=== PATIENT | male | born 1940 | race Caucasian/White ===

== ENCOUNTER 2016-12-13 08:49 | Inpatient (IN) | payer OTHER ==
[~2016-12-13] VITALS: Ht 177.8 cm; Wt 97.6 kg
--- NOTE | ~2016-12-13 | HC ---
[facility] [place] [address] CONSULTATION Name: BRADNUNU Andra Room #: 445-P [facility] IN ..#: [id number] Admission: 12/13/16 Attend Phys: Rancho Lan MD Discharge: Date of : 42 Report #: [id number] THIS REPORT FOR: //name// CC: Jorge Lan DATE OF SERVICE: 12/22/2016 HISTORY OF PRESENT ILLNESS: The patient is a 76-year-old white male who was over at [facility] after having right ankle surgery approximately 1 week prior to admission. He was limited to nonweightbearing right lower extremity. He had the onset of worsening shortness of breath and was admitted to [facility] and noted to have acute hypoxic respiratory failure. He was noted to have pneumonia, elevated troponin. Respiratory failure was thought likely be secondary to aspiration pneumonia. He also has had an acute encephalopathy with neuropathy involved. CT of the head was negative. Pulmonary medicine assisted regarding his acute hypoxic respiratory failure and he was treated for a while in the intensive care unit. He has been transferred out of the ICU. Encephalopathy appears to be gradually improving, although his mental status is still not back to premorbid status per my review of notes. He was noted to also sustain a non-ST elevation [place] with coronary artery disease and Cardiology has been involved. He is to continue current medical management. His hyponatremia resolved. He does have severe protein-calorie malnutrition. We are seeing him now in rehabilitation medicine consultation. PAST MEDICAL HISTORY: Includes non-ST elevation AZ. He has history of diabetes mellitus type 2, coronary artery disease, hypertension, elevated cholesterol, COPD, CHF. MEDICATIONS: Please see the full medication listing. ALLERGIES: No known drug allergies. FAMILY HISTORY: Noncontributory. SOCIAL HISTORY: He does have involved family, but prior to admission was at the [facility] for a intermediate facility stay. REVIEW OF SYSTEMS: Did not offer any current complaints of chest pain, shortness of breath, abdominal discomfort. PHYSICAL EXAMINATION: GENERAL: A 76-year-old white male in no obvious distress. VITAL SIGNS: Last recorded temperature 97.7, pulse 74, respirations 22, blood pressure 149/64. [facility] [address] [place] [address] CONSULTATION Name: NUNU SALINAS Room #: 445-P [facility] IN [facility]#: [id number] Admission: 12/13/16 Attend Phys: Rancho Lan MD Discharge: Date of : 42 Report #: [id number] NEUROLOGIC: He is alert, hoarse of voice some, somewhat tangential, will follow basic 1 step commands, but needs repetition. He has eyeglasses in place. EXTREMITIES: Functional range of motion of the upper extremities. Strength is grade 4- to 3+/5. In his lower extremities, right lateral ankle has kirsten in place over the incision site. 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 Strength of the right lower extremity is probably a grade 3+/5. Left lower extremity is probably 3+/5 as well. DTRs are decreased. Functionally, he has been needing max assist x 2 for bed to chair with slow shuffling pivot attempted transfer. ASSESSMENT: A 76-year-old white male with the following problem list: 1. Acute encephalopathy. 2. Acute hypoxic respiratory failure secondary to likely aspiration pneumonia. 3. Non-ST elevation myocardial infarction with coronary artery disease. 4. Recent right ankle surgery limited to nonweightbearing. 5. Hyponatremia, resolved. 6. Diabetes mellitus type 2. 7. Protein calorie malnutrition. PLAN: The nonweightbearing status with his right ankle surgery is the significant limiting factor and he is currently at a lower functional level. Case management notes reviewed and would agree with a intermediate facility stay with returning back to [facility] as he further medically stabilizes. Thank you for asking us to assist in this patient's care. <ELECTRONICALLY SIGNED> By: Michele Reyna MD 12/29/16 1523 [id number] 0252 Michele Reyna MD /nt
--- NOTE | ~2016-12-13 | O ---
[facility] [place] [address] OPERATIVE REPORT Name: NUNU SALINAS Room #: 245-P [facility]..#: [id number] Admission: 12/13/16 Attend Phys: Preston Rodríguez MD Discharge: 01/19/17 Date of : 42 Report #: [id number] THIS REPORT FOR: //name// CC: Jorge Marcus Rodríguez DATE OF SERVICE: 01/12/2017 PREOPERATIVE DIAGNOSES: Respiratory failure, aspiration pneumonia and inability to wean from ventilator for extubation. POSTOPERATIVE DIAGNOSES: Respiratory failure, aspiration pneumonia and inability to wean from ventilator for extubation. PROCEDURE: Tracheotomy planned. SURGEON: Asim Morton M.D. DESTINATION SIGN REPAIRER: Madelaine Pantoja NP ANESTHESIA: General endotracheal anesthesia and local anesthetic. ESTIMATED BLOOD LOSS: 10 mL. SPECIMENS TO PATHOLOGY: None. FINDINGS: Calcified tracheal cartilages, size 8.0 cuffed Shiley tracheotomy tube placed. Postoperative chest x-ray demonstrated tracheotomy tube well positioned. The patient was able to be ventilated well with good end-tidal CO2 return. INDICATION FOR PROCEDURE: The patient is a 76-year-old male patient who was recently admitted with multiple medical issues including coronary artery disease, COPD, previous coronary artery bypass graft with new hypoxia and pneumonia as well as elevated troponin. He was noted to have suspected aspiration pneumonia and gastroenterology evaluation showed that the patient likely had dysphagia and inability to tolerate oral feedings. He also was noted to be diagnosed newly with Clostridium difficile colitis. The patient has been on oral vancomycin for this. Gastroenterology was consulted for placement of gastrojejunal feeding tube and general surgery was consulted for tracheotomy tube placement. Detailed discussion of the risks and benefits of tracheotomy placement was held with the patient's at the bedside as the patient remained intubated and sedated. All questions were answered to her satisfaction. Risks included bleeding, pain, infection, dislodgement of the tracheotomy tube, damage to surrounding structures, possible subsequent tracheal stenosis, laryngeal injury and other potentially unforeseen issues were discussed. All questions were answered to her satisfaction. Written [address] [address] OPERATIVE REPORT Name: NUNU SALINAS Room #: 245-P [facility] IN ..#: [id number] Admission: 12/13/16 Attend Phys: Preston Rodríguez MD Discharge: 01/19/17 Date of : 42 Report #: [id number] informed consent was obtained. DESCRIPTION OF PROCEDURE: The patient was brought to the operating room and placed in a supine position. He had already been in the operating room for gastroenterology procedure, namely placement of a gastrojejunal feeding tube. Shoulder roll was placed and neck was extended to expose the neck landmarks. Palpation of the landmarks was performed and these were marked with a marking pen. Neck was sterilely prepped and draped in standard fashion from chin to sternal notch. Local anesthetic was infiltrated at approximately the second tracheal ring. Transverse incision was made with a knife and carried through the skin and subcutaneous tissue down to the platysma. This was carefully opened using electrocautery. Dissection was carried down to the level of the strap muscles, which were divided in the midline and retracted laterally. Dissection was carried further to the pretracheal fascia, which was scored and was cleared using a Peanut laterally. Second tracheal cartilage was then carefully exposed and landmarks were again palpated. The patient was preoxygenated to 100% oxygen. The 8.0 Shiley ____ tube was checked and the cuff was noted to be well functional. This was lubricated and kept nearby. Incision was made in the airway after anesthesia team had been notified. The endotracheal tube was withdrawn to just above the tracheotomy. The cartilage was then noted to be significantly calcified and even with an 11 blade, this was not able to be fully opened into a Radha flap. Curved heavy Leon scissors were utilized to create a Radha flap that would accommodate the tracheotomy tube. The tracheotomy tube was then passed into the trachea and inner cannula was removed. The patient was ventilated through this tracheotomy tube after inner cannula had been placed and upon attempting to inflate the cuff, this was noted to have ruptured. Therefore, the tracheotomy tube was exchanged for a new tracheotomy tube. The initial tube was noted to have a tear in the balloon, consistent with the jagged edge of the calcified cartilage. The second tracheotomy tube was attempted to be inflated and this also had torn a hole in the cuff. A third 8.0 Shiley tracheotomy tube was placed and a similar issue was noted, although the patient was noted to ventilate well with only a partial inflation of that cuff and even with the cuff taken down completely, the size of the tube was adequate such that the patient was receiving tidal volumes upwards of 800 mL and maintaining a saturation well with excellent end-tidal CO2 return. Therefore, this 8.0 Shiley cuffed tracheotomy tube was left in position and this was secured to the anterior neck skin with four 2-0 nylon interrupted sutures. Surgicel was placed into the tract to aid with hemostasis. It should also be noted that upon dissection down to the level of the pretracheal fascia that the thyroid isthmus had been carefully divided in the midline using electrocautery on slow fulguration. After tracheotomy tube had been fully secured and Surgicel packed into the wound, a Velcro strap was placed to further secure the tracheotomy tube. The patient was left ventilated through the Shiley tracheotomy tube and he was then transported to the ICU. Portable chest x-ray was obtained and this demonstrated tip noted above the elodia with no other obvious abnormalities, no obvious pneumothorax was noted. [facility] [address] [place] [address] OPERATIVE REPORT Name: NUNU SALINAS Room #: 245-P [facility] IN M.R.#: [id number] Admission: 12/13/16 Attend Phys: Preston Rodríguez MD Discharge: 01/19/17 Date of : 42 Report #: [id number] At this point, the case was ended. All instrumentation had been extracted and accounted for. All counts were correct per nurse report. <ELECTRONICALLY SIGNED> By: Asim Morton MD 01/21/17 0839 1633 1843 Asim Morton MD /nt
--- NOTE | ~2016-12-13 | EKG ---
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
--- NOTE | ~2016-12-13 | 2DMMODE ---
[facility] [place] [address] 2 D/M-MODE ECHOCARDIOGRAM Name: BRADNUNU E Room #: 241-P [facility] IN ..#: [id number] Admission: 12/13/16 Attend Phys: Rancho Lan MD Discharge: Date of : 42 Date of Service: 12/24/16 1353 Report #: [id number] THIS REPORT FOR: //name// APPROVED REPORT Study performed: 12/24/2016 07:57:45 EXAM: Limited 2D, Doppler, and color-flow Echocardiogram Patient Location: Bedside Room #: 241 Blood Pressure: 141/70 mmHg HR: 86 bpm Other Information Study Quality: Fair Technically limited study due to body habitus, limited mobility, poor patient compliance. Patient in ICU on vent.. Indications Limited follow up echo for Acute repiratory failure, CHF, LV function, recent NSTEMI. Hx: CABG, DM, HTN, HLP, CHF. (Complete echo done 12/14/2016) Echo Enhancing Agent Indication: Endocardial border delineation Agent/Amount Used: Definity cc Tricuspid Valve TR Peak Alton.: 2.78 m/s RAP Estimate: 10.00 mmHg TR Peak Gr.: 30.92 mmHg RVSP: 41.00 mmHg Left Ventricle Left ventricular systolic function is normal. LVEF is 50-55%. Right Ventricle The right ventricle is normal size. The right ventricular systolic function is normal. Atria The left atrium size is normal. The right atrium size is normal. Aortic Valve [facility] [address] [place] [address] 2 D/M-MODE ECHOCARDIOGRAM Name: NUNU SALINAS Andra Room #: 241-P [facility] IN ..#: [id number] Admission: 12/13/16 Attend Phys: Rancho Lan MD Discharge: Date of : 42 Date of Service: 12/24/16 1353 Report #: [id number] Aortic valve leaflets are mildly thickened. No aortic regurgitation is present. Mitral Valve The mitral valve is normal in structure. Mild mitral annular calcification. There is no mitral valve regurgitation noted. Tricuspid Valve The tricuspid valve is normal in structure. There is mild tricuspid regurgitation. The right atrial pressure is estimated at 10 mmHg. There is moderate pulmonary hypertension. Estimated PAP is 41mmHg. Great Vessels IVC is dilated and collapses >50% with inspiration. <Conclusion> Left ventricular systolic function is normal. LVEF is 50-55%. Aortic valve leaflets are mildly thickened. The mitral valve is normal in structure. Mild mitral annular calcification. There is no mitral valve regurgitation noted. The tricuspid valve is normal in structure. There is mild tricuspid regurgitation. The right atrial pressure is estimated at 10 mmHg. There is moderate pulmonary hypertension. Estimated PAP is 41mmHg. <ELECTRONICALLY SIGNED> By: Alejandro Diamond MD 12/24/16 1353 1353 1353 Alejandro Diamond MD /INF
--- NOTE | ~2016-12-13 | HC ---
[facility] [place] [address] CONSULTATION Name: NUNU SALINAS Room #: 245-P [facility] IN ..#: [id number] Admission: 12/13/16 Attend Phys: Rancho Lan MD Discharge: Date of : 42 Report #: [id number] THIS REPORT FOR: //name// CC: Jorge Lan REASON FOR CONSULTATION: I was asked to evaluate concerning pneumonia and leukocytosis. HISTORY OF PRESENT ILLNESS: The patient was a 76-[facility]-old [facility] with history of hypertension, diabetes, coronary artery disease who presented with ongoing cough, sputum production, hypoxia and bilateral pulmonary infiltrates. His white count was initially 18,000. He was placed on IV antibiotic therapy including Zosyn. He has had intermittent temperature up to 100.2 degrees. Oxygen requirements have been 2 liters, now down to 1 liter. He had a video swallow, which was negative for aspiration. He has been relatively lethargic though when questioned, he was oriented. No stroke or seizure has been identified. White count today increased to 16,000 and x-ray shows worsening pulmonary infiltrates. ALLERGIES: CODEINE, DOXYCYCLINE, SULFA. MEDICATIONS: As noted on his MAR including Zosyn. He is on no corticosteroids. PAST MEDICAL HISTORY: Diabetes, coronary artery disease, hypertension, hyperlipidemia, COPD, congestive heart failure. SOCIAL HISTORY: Nonsmoker, no significant alcohol intake. FAMILY HISTORY: Noncontributory. REVIEW OF SYSTEMS: Recently had a right ankle fracture repair, details of this are not currently available. He had a troponin bump up to 2.89. [place] this was possibly related to his hypoxia, he had a non-STEMI. Echocardiogram showed normal LV function. Cardiovascular medicine evaluated the patient and recommended medical therapy. The patient was without ongoing chest pain. He has an indwelling Guzman catheter and is incontinent of soft stool. PHYSICAL EXAMINATION: VITAL SIGNS: Afebrile, hemodynamically stable, is on room air. He was slow to answer, but was oriented to person, place, day. GENERAL: He had ptosis on the left, generally weak and was unable to rollover in bed on his own. EXTREMITIES: He had increased muscle tone throughout. NECK: Supple. LUNGS: Coarse posteriorly bilaterally. HEART: Regular, without murmur. [address] [address] CONSULTATION Name: NUNU SALINAS Room #: 245-P [facility] IN M.R.#: [id number] Admission: 12/13/16 Attend Phys: Rancho Lan MD Discharge: Date of : 42 Report #: [id number] ABDOMEN: Soft, nontender, no hepatosplenomegaly or mass. External genitalia unremarkable with indwelling Guzman catheter. Right lateral ankle incision was well approximated. 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 No evidence of cellulitis or decubiti. LABORATORY STUDIES: Sodium 129, potassium ____, bicarbonate 24, creatinine 1.6. Liver function tests: AST 29, ALT 29, alkaline phosphatase 135, bilirubin 1.5. Hemoglobin 7.4, white count 16.1, platelet count is 488,000. Blood cultures on 12/13/2016 and 12/16/2016 are negative to [address] scan of the chest shows bilateral infiltrates with nodular component. Video swallow was negative. CT of the head negative. IMPRESSION: A 76-year-old with underlying coronary artery disease, diabetes and recent right ankle fracture with bilateral pulmonary infiltrates and leukocytosis. Unclear at this point in time if this is true aspiration in etiology or component of heart failure despite a normal echocardiogram. I would recommend broadening his antibiotic coverage to include vancomycin. Obtain sputum culture if possible, MRSA screen, strep and legionella antigen screen, BNP. We will need to repeat chest x-ray to ensure improvement. <ELECTRONICALLY SIGNED> By: Luis Manuel Causey MD 12/21/16 0948 1051 1223 Luis Manuel Causey MD /nt
--- NOTE | ~2016-12-13 | HC ---
[facility] [place] [address] CONSULTATION Name: NUNU SALINAS Room #: 303-P [facility] IN ..#: [id number] Admission: 12/13/16 Attend Phys: Rancho Lan MD Discharge: Date of : 42 Report #: [id number] THIS REPORT FOR: //name// CC: Sneha Peñaloza MD REASON FOR CONSULTATION: Anemia. HISTORY OF PRESENT ILLNESS: The patient is a 76-year-old gentleman who, if I understand, had recently been at a nursing facility and he had been there after being taken there after having an open reduction and internal fixation of a lesion of his leg, I think, maybe back in early November, but I am not completely clear. We do have records of back in December 02 at [facility], found he had hemoglobin of 11.4 at an outside nursing facility. On 12/10/2016, he had hemoglobin of 7.9. On admission here, his hemoglobin was 9.1; then the next day, 8.4, which may allow for some hydration issues. Since that time, he sort of slowly drifted down, especially over the last 5 days from about 8.1 down to yesterday 7.3 and today 7.1. The patient is somewhat of a questionable historian. He denies any blood in his urine or stool that he is aware of. He has had 2 Hemoccults here that have been negative. It sounds like his last EGD and colonoscopy were about 5 years ago. It sounds like he is due in the next month or in the next several weeks if I recall. He has not been on iron recently and it does sound like maybe he might have been iron once in the past, but it is not really clear. It looks like he was also on Plavix recently or in the past. We have been consulted because of a question of anemia. We have also noted that at the same time, his MCV is about 94.4. His white count was initially elevated and it is now normalized. He has a fairly nonacute differential, though there have been some metamyelocytes and myelocytes noted. His platelet count, which was initially 497,000 on admission here, was up to 529,000 and is now down to 404,000. His absolute retic count from yesterday is 51%. His immature reticulocyte fraction is 0.65. These, I believe, are suggestive of under production. The rest of his lab is notable for BUN on admission of 25, recently 13; creatinine was 1.3, it is now 0.9. Liver functions have been normal. Total bilirubin has been normal. AST and ALT have been normal. Albumin recently 1.7. LDH was 549. Iron studies on the showed an iron of 22, which is low; TIBC of 87, which is low and percent saturation of 25, which is low normal or in the low range of normal. Protime here is 12.4. Recent APTT of 39.4, which is elevated; on admission, it is 34.1. Fibrinogen level is normal. Ferritin was 854. TSH normal at 0.48. He was C. diff positive recently. Methylmalonic acid level was ordered and is drawn and [facility] [address] [place] [address] CONSULTATION Name: NUNU SALINAS Room #: 303-P ADM IN [place]#: [id number] Admission: 12/13/16 Attend Phys: Rancho Lan MD Discharge: Date of : 42 Report #: [id number]. Vitamin D-125 is 44.6. U/A did not reveal any blood, there is trace. Scans done here include a CTA of the chest earlier, which did not reveal any unusual masses or lymphadenopathy. There was some question of pulmonary infiltrate and questionable, I think, atelectasis. They suggested a followup to make sure that pulmonary nodular density has cleared up. He has also had a CT head that I believe was no acute changes. He has an ultrasound of the lower extremity that did not reveal any clots on the . Same date upper extremity did reveal some swelling in the left arm, with occlusive thrombus involving the cephalic vein from proximal forearm to mid humeral level. REVIEW OF SYSTEMS: The patient at this time denies headache. He does have a slight dry throat, not really sore. He says he has maybe coughing a little bit. Does not feel real short of breath, just very tired. No abdominal pain. Does admit to some diarrhea over the last several days. No nausea. He is not aware of any blood in his urine or stool. He is not aware of coughing up any blood. He is not aware of any skin rash. He does have a sore ankle from the not too recent surgery. PAST MEDICAL HISTORY: Past history is notable for the type 2 diabetes, coronary artery disease with a questionable non-BUCKY KS from about 2 weeks ago. Also, history of coronary artery disease, hypertension, lipid abnormality, COPD and CHF. He had amputation of the right first toe. MEDICATIONS: At this time in the hospital include insulin on a sliding scale; meropenem antibiotics; Lovenox 40 mg daily, begun yesterday; pantoprazole 40 daily. He had pressors in the past. Electrolyte replacement medications; cyanocobalamin 1000 mcg daily; enteric-coated aspirin 81 daily; clopidogrel 75 daily, began on the ; metoprolol 25 q.12h.; atorvastatin 20 at bedtime; ipratropium and albuterol 3 mL q.4h.; Tylenol p.r.n. and Zofran p.r.n. PHYSICAL EXAMINATION: VITAL SIGNS: The patient is 5 feet 10, which is 177.8 cm. Weight is around 226 pounds, which is 102.5 kilograms. HEENT: Face appears mostly symmetric, though in the past I know there had been a comment about facial droop, though it was thought to be old. His speech is somewhat garbled, but I think that maybe from dry throat and mucus. He appears to understand questions and had been communicating well. LYMPHATICS: No enlarged lymph nodes in the supraclavicular, cervical, axillary or inguinal region. ABDOMEN: Obese, not really tender. No abnormal masses noted. EXTREMITIES: Without clubbing or cyanosis. Note that does have about 1-2 mm edema at the ankles. Has changes from the right first toe amputation. ASSESSMENT AND PLAN: 1. Anemia. The patient appears to have hypoproliferative anemia. This could be related to chronic illness or could be related [place] [id number] CONSULTATION Name: NUNU SALINAS Room #: 303-P [facility] IN [place].R.#: [id number] Admission: 12/13/16 Attend Phys: Rancho Lan MD Discharge: Date of : 42 Report #: [id number] panel is not really clear about whether he is iron deficient. His ferritin is likely elevated from acute inflammatory status, which suggests to give the patient 200 mg of iron dextran to make sure he has adequate iron to help with red cell production. We will transfuse if he drops below 7. Note that he is also due for colonoscopy and EGD per 5-year in the near future. He was Hemoccult negative. I think we could cautiously proceed with Plavix as he has been on and also the addition of Lovenox prophylaxis. We will follow with you. Note that methylmalonic acid level is pending. Could check an erythropoietin level, but we would not be able to as there is no indication to fix it. Note the patient had metamyelocytes and myelocytes. If these persist, could consider bone marrow biopsy, but I doubt bone marrow dysfunction at this point with a fairly good white cell production and normal platelet count and MCV in normal range. 2. Catheter-associated clot in the left arm, catheter now gone. Catheter on the right side. Agree with the use of Lovenox and conservative measures. 3. Coronary artery disease. Agree with Plavix, aspirin and other meds. 4. Lipids. Continue statins. 5. Ulcer prophylaxis. Continue pantoprazole. 6. Chronic obstructive pulmonary disease. Continues inhalers. 7. Clostridium difficile. We will defer antibiotic management to others. This is a recent finding. 8. Question of pneumonia. He is currently on meropenem. 9. Weakness and deconditioning. PT, OT as tolerated. We will follow with you. <ELECTRONICALLY SIGNED> By: Freddie Gagnon MD 12/23/16 0929 0809 0224 Freddie Gagnon MD /nt
--- NOTE | ~2016-12-13 | O ---
[facility] [place] [address] OPERATIVE REPORT Name: NUNU SALINAS Room #: 245-P [facility]..#: [id number] Admission: 12/13/16 Attend Phys: Preston Rodríguez MD Discharge: 01/19/17 Date of : 42 Report #: [id number] THIS REPORT FOR: //name// CC: Jorge Marcus Rodríguez DATE OF SERVICE: 01/14/2017 PREOPERATIVE DIAGNOSES: Dysfunctional tracheotomy tube cuff unable to hold pressure. POSTOPERATIVE DIAGNOSES: Functional 8.0 Shiley tracheotomy tube. SURGEON: Asim Morton MD. [employer]: Tracheotomy revision. ANESTHESIA TYPE: General. ESTIMATED BLOOD LOSS: 1 mL. SPECIMENS TO PATHOLOGY: None. COMPLICATIONS: None. FINDINGS: An 8.0 Shiley cuff tracheotomy tube placed. Cuff noted to hold pressure well with Valsalva without air leak. INDICATION FOR PROCEDURE: The patient is a 76-year-old male patient with multiple medical problems including respiratory failure and clostridium difficile colitis who has been recently intubated with inability to wean from the ventilator. He had undergone tracheotomy placement on 01/12/2017. Subsequent to this over the next 48 hours, it was noted that the cuff on his tracheotomy tube was unable to hold seal well, although the patient was able to ventilate well. It was noted that he had secretions that were not being well tolerated and there was concern that ongoing aspiration might be occuring, therefore, general surgery was asked to revise the tracheotomy and replace the tube as this was such a recent tracheotomy placement. The decision was made to perform this in the operating room setting for better vascular control, visualization and with better access to equipments should the need arise. Detailed discussion of the risks and benefits of this procedure was held with family and written informed consent was obtained by the durable power of deputy prosecuting attorney. DESCRIPTION OF PROCEDURE: The patient was brought to the operating room and placed in a supine position. Timeout was taken to verify the patient's identity [address] [address] OPERATIVE REPORT Name: BRADNUNU E Room #: 245-P [facility] IN ..#: [id number] Admission: 12/13/16 Attend Phys: Preston Rodríguez MD Discharge: 01/19/17 Date of : 42 Report #: [id number] and to plan the procedure, the patient was anesthetized and already had the old 8.0 Shiley tracheotomy tube in place. A new 8.0 Shiley cuffed tracheotomy tube was brought into the field and was checked to see that the cuff was well functional. This was lubricated and set to the side. The previously placed Shiley tracheotomy tube was removed and examination of the previously placed direct flap was performed. This was noted to be intact with no obvious active bleeding. Some secretions were suctioned clear. A nasal speculum was utilized to hold back the jagged edges of the calcifed cartilage, which had been noted previously. The 8.0 Shiley cuffed tube was then placed within the tracheal lumen and nasal speculum was extracted, cuff was inflated, [place] was attached. Good entitle CO2 was noted and the cuff was noted to hold pressure well. The patient was brought to Valsalva by anesthesia and even with Valsalva up to a level of 50, no air leak was noted around the tracheotomy tube cuff. This tracheotomy tube was then secured to the anterior neck skin with four 2-0 nylon interrupted sutures and Velcro strap was applied to one fingerbreadth tightness. At this point the case was ended. All Instrumentation have been extracted and accounted for. All accounts were correct per nursing report. The patient was taken back to the intensive care unit in guarded condition. No immediate complications. <ELECTRONICALLY SIGNED> By: Asim Morton MD 01/21/17 0842 0927 1238 Asim Morton MD /nt
--- NOTE | ~2016-12-13 | S ---
[facility] [place] [address] SURGICAL PATH RPT PROCEDURE Name: NUNU SALINAS Room #: 303-P ADM IN M.R.#: [id number] Admission: 12/13/16 Date of : 42 Discharge: Report #: [id number] Path Case #: [id number] PATHOLOGY REPORT COLLECTION DATE: 12/21/2016 RECEIVED DATE: 12/21/2016 SUBMITTING PHYS: Dr. Freddie Gagnon OTHER PHYS: Dr. Rancho Tao SPECIMEN(S) RECEIVED: A.Peripheral smear * * * * * * * * * * * * FINAL DIAGNOSIS: Peripheral blood smear: - Severe normocytic anemia, left shifted granulocytes and mild thrombocytosis. (See comment) COMMENT: Overall the peripheral blood has severe normocytic anemia, left-shifted granulocytes with reactive changes and mild thrombocytosis. The WBC is within the normal reference range. The etiology of the findings is unclear based entirely on slide review. It is likely related to the patient's underlying medical condition. Other causes of normocytic anemia include anemia of chronic disease, treated and/or compensated vitamin and mineral deficiencies, acute blood loss and dilutional. Potential causes of thrombocytosis include iron deficiency, other reactive conditions and less likely primary bone marrow disorders. No blasts or markedly atypical lymphoid cells are seen on scanning. Correlation with clinical history and additional laboratory data is recommended. (CLW:luna; d/t: 12/21/2016) PATHOLOGIST: Inés Herrera M.D. REPORT ELECTRONICALLY SIGNED BY: Inés Herrera M.D. DATE/TIME: 12/21/2016 22:43 * * * * * * * * * * * * MICROSCOPIC DESCRIPTION: CBC DATA (12/21/16): WBC: 8,100 /uL; RBC: 2.28; Hgb: 7.3 g/dL; Hct: 21.2%; MCV: 92.7 fL; MCH: 31.8 pg; MCHC: 34.3 %; RDW: 13.8%; platelets: 452,000 [place] [address] SURGICAL PATH RPT PROCEDURE Name: NUNU SALINAS Room #: 303-P ADM IN [facility].#: [id number] Admission: 12/13/16 Date of : 42 Discharge: Report #: [id number] Path Case #: [id number] /uL. Manual white blood cell differential: segs - 89%, lymphs - 2%, monos - 2%, eos - 5%, baso - 1%, metas - 1%, myelos - 1%. Peripheral blood smear: Cytomorphological examination of the Singletary's-stained peripheral blood smear confirms the provided data. Red blood cells show severe normocytic anemia with no significant anisopoikilocytosis. No schistocytes or microspherocytes are seen. White blood cells are predominantly segmented neutrophils and have mild reactive changes. There is a mild left shift with rare myelocytes and metamyelocytes noted on scanning. No blasts or Andrew rods are seen. Rare lymphocytes are predominantly small, round and mature-appearing with condensed chromatin and scant cytoplasm with admixed large granular lymphocytes and reactive-appearing lymphocytes. On scanning, no markedly atypical lymphoid cells are seen. Monocytes are mature. Platelets are mildly increased in number and mainly normal in morphology with rare larger platelets noted. GROSS PATHOLOGY: A peripheral smear is submitted for review. CLINICAL HISTORY: 76-year-old man with pneumonia. Morphologic review of the peripheral blood smear is requested by the patient's physician. INITIAL CPT CODE(S): A; [place] Professional services performed by [facility] at [facility] [address], [place] [address] Technical services performed by [facility] at [address] [place] [address], [address], [place] [address]. [facility] [address] [place] [address] PHONE: [phone] DIRECTOR: Win Amaral M.D. * * * END OF REPORT * * *
--- NOTE | ~2016-12-13 | HC ---
[facility] [address] CONSULTATION Name: BRADNUNU E Room #: 245-P [facility] IN .R.#: [id number] Admission: 12/13/16 Attend Phys: Rancho Lan MD Discharge: Date of : 42 Report #: [id number] THIS REPORT FOR: //name// CC: Jorge Lan DATE OF SERVICE: 12/19/2016 REASON FOR CONSULTATION: Atelectasis and infiltrates. IMPRESSION: 1. Atelectasis and infiltrates, likely aspiration pneumonia. 2. Acute hypoxemic respiratory failure. 3. Encephalopathy, question etiology. 4. Non-ST elevation myocardial infarction. 5. Diabetes with fluctuating blood sugars. 6. Right ankle fracture. 7. History of rhabdomyolysis. 8. Anemia, microcytic. PLAN: We will work him up for possible sepsis; if procalcitonin or white count is elevated, we will move to ICU and monitor there. We will push pulmonary toilet IS, and IPV and BiPAP. DVT prophylaxis has been done already. Doubt this is fat embolism. He has had problems with medications in the past including Cipro and doxycycline and we were reviewed the meds. HISTORY OF PRESENT ILLNESS: A 76-year-old presented to [facility] after having 3 falls, has had a recent amputation. He has a history of diabetes. He has been having problems with hyperglycemia, had 3 falls before being admitted. He had surgery earlier this month. Discussed with the family, he has had problem with hypoglycemia, even at [facility]. Since he has been here on and off for poor mentation. But usually awakens easier. PAST MEDICAL HISTORY: Per chart and discussed with the family, hypertension, diabetes, coronary artery disease, hyperlipidemia. PAST SURGICAL HISTORY: Include CABG amputation. ALLERGIES: SULFA, CODEINE, DOXYCYCLINE, CIPRO. SOCIAL HISTORY: Negative tobacco. FAMILY HISTORY: Noncontributory. HOME MEDICATIONS: Included hydrochlorothiazide, simvastatin, Actos, metformin, Plavix, Diabeta, Prinivil, aspirin, metoprolol, cyanocobalamin, hydrocodone. [facility] [address] [place] [address] CONSULTATION Name: NUNU SALINAS Room #: 245-P [facility] IN ..#: [id number] Admission: 12/13/16 Attend Phys: Rancho Lan MD Discharge: Date of : 42 Report #: [id number] REVIEW OF SYSTEMS: Unobtainable from the patient as he is very lethargic, arouses somewhat. PHYSICAL EXAMINATION: VITAL SIGNS: Temperature 98.2, pulse 76, respirations 16, BP 131/53. EYES: Negative icterus. NECK: Negative JVD. LUNGS: Coarse bilateral. HEART: Regular. ABDOMEN: Bowel sounds present. EXTREMITIES: Right greater than left leg warmth. LABORATORY DATA: Did not follow. Discussed with the family and nurse. Forty minutes of critical care time spent up to this point. pH 7.5, pCO2 of 30, pO2 of 66. Chest x-ray showed bibasilar infiltrates. Iron 22, TIBC 87. White count 8.5. BUN 18, creatinine 1.2. Magnesium 1.6. <ELECTRONICALLY SIGNED> By: Fransisco Landry MD 12/21/16 0548 1624 2251 Fransisco Landry MD /nt
--- NOTE | ~2016-12-13 | P ---
[facility] [place] [address] PROCEDURE REPORT Name: SHAUNNA SALINASJAZZY Silverman Room #: 245-P [facility] IN M.R.#: [id number] Admission: 12/13/16 Attend Phys: Preston Rdoríguez MD Discharge: Date of : 42 Report #: [id number] THIS REPORT FOR: //name// CC: Jorge Rodríguez DATE OF SERVICE: 01/12/2017 PROCEDURE: Percutaneous endoscopic gastrojejunostomy tube placement. This was performed in OR3. INDICATION: Recurrent aspiration pneumonia. Plan is for post-pyloric feeding tube placement and tracheostomy. DESCRIPTION OF PROCEDURE: The adult endoscope was introduced through the esophagus into the stomach into the second portion of the duodenum and then withdrawn slowly with careful inspection of the mucosa. There was mild gastric erythema in the antrum, but normal esophagus, normal duodenum. The transillumination was then performed with good 1:1 impression and the trocar was then introduced into the stomach. The wire was then passed. A snare was then used to pull the wire out of the mouth. The pull 24-[place] G-tube placement was then pulled through and made taut to the stomach wall. The -tube was then fashioned with a string on the end of it. The adult endoscope was then reintroduced into the mouth, down into the stomach. The string was grasped with an endoscopic hemostatic clip and then pulled down into the duodenum where it was then deployed on the second portion of the duodenal wall. The scope was then withdrawn carefully and at the end of the procedure, the post-pyloric feeding tube was passed the pylorus. The procedure was then terminated. RECOMMENDATIONS: To start tube feeds in 4 hours. Can use for water and crushed medications at this time. <ELECTRONICALLY SIGNED> By: Lake Rosario MD 01/15/17 1103 0901 1824 Lake Rosario MD /nt
--- NOTE | ~2016-12-13 | HC ---
[facility] [place] [address] CONSULTATION Name: NUNU SALINAS Room #: 454-P [facility] IN ..#: [id number] Admission: 12/13/16 Attend Phys: Rancho Lan MD Discharge: Date of : 42 Report #: [id number] THIS REPORT FOR: //name// CC: Jorge Lan DATE OF SERVICE: 12/13/2016 INDICATION: Positive troponin. HISTORY OF PRESENT ILLNESS: This is a 76-year-old gentleman residing at [facility] after experiencing multiple falls. He was noted to have cough with dyspnea over the past few days. His saturation was 84% on room air, and he was brought to [facility] for an evaluation. Chest x-ray was consistent with pneumonia with an elevated white count. We are asked to evaluate the patient for a positive troponin level. He is confused and the history cannot be obtained from the patient. PAST MEDICAL HISTORY: History of CAD, hypertension, diabetes mellitus, COPD, and recently with frequent falls. ALLERGIES: CODEINE, DOXYCYCLINE and SULFA. MEDICATIONS: Include glyburide 5 mg twice a day, Plavix 75 daily, metoprolol, Zestril 20 mg daily, hydrochlorothiazide once a day, Actose 30 mg daily, simvastatin, Glucophage, aspirin once a day and midodrine 5 mg 3 times a day. SOCIAL HISTORY: Negative for tobacco use. FAMILY HISTORY: Unknown. REVIEW OF SYSTEMS: Unobtainable. PHYSICAL EXAMINATION: VITAL SIGNS: Blood pressure is 110/90 and heart rate is 100 beats per minute. GENERAL APPEARANCE: Elderly-appearing male, in no acute respiratory distress. HEAD AND EYES: Normocephalic. Sclerae are anicteric. EARS, NOSE AND THROAT: Oral mucosa moist. NECK: Supple. LUNGS: Diminished breath sounds at the bases. CARDIAC: Distant heart sounds, S1, S2 positive. ABDOMEN: Soft and nontender. EXTREMITIES: No major joint deformities. Trace lower extremity edema. LABORATORY VALUES: ECG reveals sinus rhythm, right bundle branch block and left anterior hemiblock. Peak troponin level is 2.89, white count is 18.3, [facility] [address] [place] [address] CONSULTATION Name: NUNU SALINAS Andra Room #: 454-P [facility] IN [facility].#: [id number] Admission: 12/13/16 Attend Phys: Rancho Lan MD Discharge: Date of : 42 Report #: [id number] hemoglobin is 9.1. Sodium is 134 and creatinine is 1.3. ASSESSMENT AND PLAN: 1. Pneumonia/hypoxia, found to have an elevated white count. Continue treatment with antibiotics. 2. Non-ST elevation myocardial infarction, peak troponin of 2.89. May have been exacerbated with hypoxia from the pneumonia. Given his mental status at this time, the plan is to continue with conservative therapy. He should continue with aspirin therapy. He will need an echocardiogram to assess the left ventricular systolic function. 2. Falls, reportedly had frequent episodes recently. The etiology is unclear. Looking at his medications, he is on midodrine, and a component of autonomic dysfunction may be contributing. We will monitor his blood pressure in the hospital. 3. Diabetes mellitus, found to have hypoglycemic episodes, continue with Accu-Cheks. 4. Hypertension. The blood pressure is on the low side. 5. Mental status change, possibly related to metabolic syndrome. Hyperglycemia can also be contributing to this problem. Thank you for allowing me to participate in the care of your patient. <ELECTRONICALLY SIGNED> By: Joseph Landaverde MD 12/14/16 0739 24 0003 Joseph Landaverde MD /nt
--- NOTE | ~2016-12-13 | HC ---
[facility] [place] [address] CONSULTATION Name: NUNU SALINAS Room #: 245-P [facility] IN ..#: [id number] Admission: 12/13/16 Attend Phys: Preston Rodríguez MD Discharge: Date of : 42 Report #: [id number] THIS REPORT FOR: //name// CC: Jorge Rodríguez CHIEF COMPLAINT: Respiratory failure, aspiration pneumonia. HISTORY OF PRESENT ILLNESS: The patient is a 76-year-old gentleman with a past medical history of diabetes mellitus with neuropathy, COPD, hypertension, coronary artery disease, previous myocardial infarction, previous coronary artery bypass graft with stents in place, recent falls with rhabdomyolysis and recent leg fracture. The patient has been recently intubated on the ventilatory support with presumed aspiration pneumonia. His most recent admission was 1 month ago on December 13. He had been brought in for cough and hypokalemia. He had noted desaturation to 84% on room air. The patient was subsequently intubated for respiratory failure approximately 10 days ago and attempts to wean have been unsuccessful. The patient has also been diagnosed with Clostridium difficile colitis during this admission. PAST MEDICAL HISTORY: As described above, positive for diabetes, coronary artery disease, previous coronary artery bypass graft, previous stent placement, hypertension, COPD, and peripheral vascular disease with previous great toe amputation. PAST SURGICAL HISTORY: Right toe amputation for peripheral vascular disease, coronary artery bypass graft, and right fibula fracture repair in November 2016. SOCIAL HISTORY: Negative for tobacco or drug use, social ETOH prior to admission. The patient lives with his spouse who is present today at the bedside. REVIEW OF SYSTEMS: Unable to obtain as the patient is intubated and sedated. PHYSICAL EXAMINATION: GENERAL: The patient is a frail appearing 76-year-old male patient. He does nod yes and no to questions appropriately indicating at least some degree of mental status intact. HEENT: Head is atraumatic and normocephalic. He does have a fair amount of secretions. NECK: Thin with palpable landmarks. LUNGS: Slightly coarse. There is a well-healed midline sternotomy. ABDOMEN: Soft and mildly distended. No obvious tenderness to palpation. EXTREMITIES: Without clubbing, cyanosis, or edema. SKIN: Warm and dry. No icterus is appreciated. HEART: Regular and no obvious jugular venous distention is appreciated. LABORATORY STUDIES: Reviewed. Complete blood count shows a white count of 6.2, hemoglobin of 8.2, platelets of 320. Basic metabolic profile showed a BUN of 19, creatinine 0.7, magnesium 1.9 and phosphorus [place] 2[place] [address] CONSULTATION Name: NUNU SALINAS Room #: 245-P [facility] IN ..#: [id number] Admission: 12/13/16 Attend Phys: Preston Rodríguez MD Discharge: Date of : 42 Report #: [id number] IMPRESSION: A 76-year-old male patient with multiple complex medical issues including presumed aspiration pneumonia and respiratory failure, inability to wean from the ventilator support with apparent dysphagia based upon gastroenterology evaluation. RECOMMENDATIONS: Plan for gastrojejunal tube placement by gastroenterology team in the operating room. Will coordinate to perform tracheotomy in the operating room setting during the same anesthetic. Detailed discussion of risks and benefits of tracheotomy placement held with the patient's at the bedside. All questions were answered to the patient's satisfaction. Written informed consent was obtained. Consultation very much appreciated. We will continue to follow closely. <ELECTRONICALLY SIGNED> By: Asim Morton MD 01/13/17 2146 1312 05 Asim Morton MD /nt
--- NOTE | ~2016-12-13 | 2DMMODE ---
[facility] [address] [place] [address] 2 D/M-MODE ECHOCARDIOGRAM Name: NUNU SALINAS Room #: 454-P [facility] IN [facility]#: [id number] Admission: 12/13/16 Attend Phys: Rancho Lan MD Discharge: Date of : 44 Date of Service: 12/14/16 1530 Report #: [id number] THIS REPORT FOR: //name// APPROVED REPORT Study performed: 12/14/2016 14:43:11 EXAM: Comprehensive 2D, Doppler, and color-flow Echocardiogram Patient Location: Bedside Room #: [facility] Blood Pressure: 119/43 mmHg HR: 78 bpm Other Information Study Quality: Adequate Indications COPD Diabetes Dyspnea Hypertension/HDD 2D Dimensions RVDd: 36.96 mm IVC: 15.00 mm Volumes Left Atrial Volume (Systole) Single Plane 4CH: 63.98 mL Single Plane 2CH: 66.44 mL LA ESV Index: 33.00 mL/m2 Aortic Valve AoV Peak Alton.: 1.45 m/s AO Peak Gr.: 8.38 mmHg LV Max P.09 mmHg LV Max: 1.01 m/s Mitral Valve E/A Ratio: 1.1 MV Decel. Time: 236.89 ms MV E Max Alton.: 1.10 m/s MV A Alton.: 1.02 m/s MV PHT: 68.70 ms [facility] [address] [place] [address] 2 D/M-MODE ECHOCARDIOGRAM Name: NUNU SALINAS Room #: 454-P [facility] IN [facility].#: [id number] Admission: 12/13/16 Attend Phys: Rancho Lan MD Discharge: Date of : 44 Date of Service: 12/14/16 1530 Report #: [id number] Pulmonary Valve PV Peak Alton.: 0.96 m/s PV Peak Gr.: 3.72 mmHg Tricuspid Valve TR Peak Alton.: 2.68 m/s RAP Estimate: 5.00 mmHg TR Peak Gr.: 28.77 mmHg Left Ventricle The left ventricle is normal size. There is normal LV segmental wall motion. There is normal left ventricular wall thickness. The left ventricular systolic function is normal. The left ventricular ejection fraction is within the normal range. LVEF is 55-60%. Diastolic function cannot be accurately assessed. Right Ventricle The right ventricle is normal size. The right ventricular systolic function is normal. Atria The left atrium size is normal. The right atrium size is normal. Aortic Valve Aortic valve is calcified. No aortic regurgitation is present. There is no aortic valvular stenosis. Mitral Valve The mitral valve is normal in structure. Trace mitral regurgitation. No evidence of mitral valve stenosis. Tricuspid Valve The tricuspid valve is normal in structure. There is mild tricuspid regurgitation. The right atrial pressure is estimated at 10 mmHg. There is mild pulmonary hypertension. The estimated PAP was 38 mmHg. Pulmonic Valve The pulmonary valve is normal in structure. There is no pulmonic valvular regurgitation. Great Vessels The aortic root is normal in size. IVC is normal in size and collapses >50% with inspiration. Pericardium [facility] [address] [place] [address] 2 D/M-MODE ECHOCARDIOGRAM Name: NUNU SALINAS Room #: 454-P ADM IN [facility]#: [id number] Admission: 12/13/16 Attend Phys: Rancho Lan MD Discharge: Date of : 44 Date of Service: 12/14/16 153 Report #: [id number] There is no pericardial effusion. <Conclusion> The left ventricle is normal size. LVEF is 55-60%. Aortic valve is calcified. No aortic regurgitation is present. There is no aortic valvular stenosis. The mitral valve is normal in structure. Trace mitral regurgitation. The tricuspid valve is normal in structure. There is mild tricuspid regurgitation. The right atrial pressure is estimated at 10 mmHg. There is mild pulmonary hypertension. The estimated PAP was 38 mmHg. <ELECTRONICALLY SIGNED> By: Alejandro Diamond MD 12/14/16 1530 153 1530 Alejandro Diamond MD /INF
--- NOTE | ~2016-12-13 | CNG ---
[facility] [place] [address] CYTO-NONGYN REPORT PROCEDURE Name: GIAN SALINAS Room #: 245-P ADM IN M.R.#: [id number] Admission: 12/13/16 Date of : 42 Discharge: Report #: [id number] Path Case #: [id number] CYTOPATHOLOGY REPORT COLLECTION DATE: 01/04/2017 RECEIVED DATE: 01/04/2017 SUBMITTING PHYS: Dr. Fransisco Landry OTHER PHYS: Dr. Jorge Lan CLINICAL HISTORY: HCAP, Hypoxia SPECIMEN(S) RECEIVED: A.Sputum * * * * * * * * * * * * FINAL DIAGNOSIS: A. Sputum: - No malignant cells identified. -Paucicellular specimen consisting of occasional macrophages, squamous epithelial cells, rare fungal and bacterial elements and acute and chronic inflammatory cells. PATHOLOGIST: Inés Herrera M.D. REPORT ELECTRONICALLY SIGNED BY: Inés Herrera M.D. DATE/TIME: 01/05/2017 14:43 * * * * * * * * * * * * GROSS PATHOLOGY: A. Sputum: The specimen is submitted unfixed, labeled "Gian Salinas". Received by the Cytology Department is less than one mL of cloudy thick white fluid. One ThinPrep slide was prepared. (mm 01.04.2017) CONSOLIDATION ACCOUNTANT(S): RANDA Good([facility]) INITIAL CPT CODE(S): A; 15730 Professional services performed by [facility] at [facility] [address], [place] [address] Technical services performed by [facility] at [address] [place] [address]., [address], [place] [address]. [facility] [address] [place] [address], [address] [facility] [address] [place] [address] CYTO-NONGYN REPORT PROCEDURE Name: GIAN SALINAS Room #: 245-P ADM IN ..#: [id number] Admission: 12/13/16 Date of : 42 Discharge: Report #: [id number] Path Case #: [id number] [place] [address] PHONE: [phone] DIRECTOR: Win Amaral M.D. * * * END OF REPORT * * *
--- NOTE | ~2016-12-13 | EEG ---
[facility] [place] [address] ELECTROENCEPHALOGRAM Name: NUNU SALINAS Room #: 241-P [facility] IN M.R.#: [id number] Admission: 12/13/16 Attend Phys: Rancho Lan MD Discharge: Date of : 42 Report #: [id number] THIS REPORT FOR: //name// CC: Jorge Lan DATE OF SERVICE: 12/16/2016 This patient is being evaluated for the possibility of encephalopathy. EEG was done by placing the electrodes by standard 10-20 system of electrode placement. Both referential and sequential montages were used for recording. Background activity in this patient's EEG is about 9 Hz and 30 microvolt. This is intermixed with theta range slowing on both sides. The patient appeared to be drowsy during his part of the EEG and that is associated with more slowing on both sides and a few vertex sharp waves on both. Photic stimulation is unremarkable. Throughout the record, no active epileptiform activity was noticed. IMPRESSION: Moderately abnormal EEG because it is disorganized and poorly formed. That is a nonspecific abnormality, which can occur with encephalopathy, effect of psychotropic medication, dementia, etc. Clinical correlation is recommended. <ELECTRONICALLY SIGNED> By: Leonardo Rivas MD 12/19/16 1942 1704 1825 Leonardo Rivas MD /nt
[2016-12-13 08:51] VITALS: BP 117/61
[2016-12-13 09:13] LABS: HEMATOCRIT 27.6 % (42.0-52.0); HEMOGLOBIN 9.1 gm/dL (14.0-18.0); MCH 31.2 pg (26.0-34.0); MCHC 33.1 g/dL (28.0-37.0); MCV 94.4 fL (80.0-100.0); PLATELET COUNT 497 thou/uL (150-400); RBC 2.92 mil/uL (4.50-6.00); RDW 13.8 % (10.5-14.5); WBC 18.3 thou/uL (4.0-11.0)
[2016-12-13 09:18] LABS: MANUAL DIFF YES
[2016-12-13] MEDS ORDERED: PLAVIX 75 MG TA75 M1 PO (09:19)
[2016-12-13] MEDS ORDERED: GLYBURIDE 5 MG T5 M1 PO (09:19)
[2016-12-13] MEDS ORDERED: METOPROLOL TART25 MG PO (09:22)
[2016-12-13] MEDS ORDERED: ACTOS 30 MG TAB30 M2 PO (09:23)
[2016-12-13] MEDS ORDERED: HYDROCHLOROTHIA25 M2 PO (09:23)
[2016-12-13] MEDS ORDERED: LISINOPRIL40 MG PO (09:23)
[2016-12-13] MEDS ORDERED: SIMVASTATIN40 MG PO (09:24)
[2016-12-13] MEDS ORDERED: METFORMIN HCL500 MG PO (09:24)
[2016-12-13] MEDS ORDERED: ASPIR 8181 M1 PO (09:25)
[2016-12-13] MEDS ORDERED: CIPROFLOXACIN500 M1 PO (09:26)
[2016-12-13] MEDS ORDERED: NORCO 5-325 TA1 EACH PO (09:26)
[2016-12-13] MEDS ORDERED: VITAMIN D2000 UNIT PO (09:27)
[2016-12-13] MEDS ORDERED: MIDODRINE HCL 55 M1 PO (09:27)
[2016-12-13] MEDS ORDERED: ROBITUSSIN100 MG/53 PO (09:28)
[2016-12-13 09:38] LABS: CALCIUM 9.3 mg/dL (8.5-10.1); CREATININE 1.3 mg/dL (0.7-1.3); POTASSIUM 4.1 mmol/L (3.5-5.1)
[2016-12-13 09:42] LABS: ALBUMIN 2.5 g/dL (3.4-5.0); TOTAL BILIRUBIN 1.5 mg/dL (<0.1-1.0); TOTAL PROTEIN 7.2 g/dL (6.4-8.2)
[2016-12-13 09:43] LABS: TROPONIN-I 1.78 ng/mL (<0.04-0.07)
[2016-12-13 09:51] LABS: ABSOLUTE NEUTROPHILS 16.1 thou/uL (1.4-8.2); TOTAL CELL COUNT 100
[2016-12-13 09:52] LABS: ANISOCYTOSIS 1+; POLYCHROMASIA SLIGHT
[2016-12-13 09:56] LABS: ABG SAMPLE TYPE ARTERIAL; BE(vivo) 0.2 mmol/L (-2 to +3); HCO3 23.9 mmol/L (22.0-26.0); LACTATE 1.42 mmol/L (0.5-2.0); O2(CT) 12.7 mL/dL (15.0-23.0); O2Hb 96.2 % (92.0-98.0); PCO2 34.9 mmHg (35.0-45.0); STICK SITE R.RADIAL; pH 7.453 (7.360-7.450); sO2 97.3 % (92.0-98.0); tCO2 24.9 mmol/L (24.0-30.0)
[2016-12-13 11:58] VITALS: BP 140/69
[2016-12-13 12:36] VITALS: BP 168/110
[2016-12-13 15:16] VITALS: BP 111/99
[2016-12-13 20:30] VITALS: BP 112/51
[2016-12-14] VITALS (9 sets, daily range): BP systolic 96–134; BP diastolic 43–81
[2016-12-14 07:56] LABS: HEMOGLOBIN 8.4 gm/dL (14.0-18.0); MCH 31.8 pg (26.0-34.0); MCHC 33.7 g/dL (28.0-37.0); MCV 94.6 fL (80.0-100.0); RBC 2.65 mil/uL (4.50-6.00); WBC 13.7 thou/uL (4.0-11.0)
[2016-12-14 08:10] LABS: CALCIUM 8.1 mg/dL (8.5-10.1); CREATININE 1.4 mg/dL (0.7-1.3); POTASSIUM 3.9 mmol/L (3.5-5.1)
[2016-12-15 02:39] VITALS: BP 115/50
[2016-12-15 05:33] LABS: HEMATOCRIT 24.2 % (42.0-52.0); HEMOGLOBIN 8.2 gm/dL (14.0-18.0); MCH 31.7 pg (26.0-34.0); MCHC 33.8 g/dL (28.0-37.0); MCV 93.8 fL (80.0-100.0); RBC 2.58 mil/uL (4.50-6.00); RDW 13.9 % (10.5-14.5)
[2016-12-15 05:53] LABS: CALCIUM 8.2 mg/dL (8.5-10.1); CREATININE 1.4 mg/dL (0.7-1.3); POTASSIUM 3.9 mmol/L (3.5-5.1)
[2016-12-15 07:32] VITALS: BP 121/54
[2016-12-15 15:54] VITALS: BP 108/81
[2016-12-15 19:52] VITALS: BP 146/62
[2016-12-16 00:01] VITALS: BP 110/61
[2016-12-16 04:02] VITALS: BP 104/54
[2016-12-16 08:05] VITALS: BP 116/53
[2016-12-16 11:33] LABS: CALCIUM 7.3 mg/dL (8.5-10.1); CREATININE 1.6 mg/dL (0.7-1.3); POTASSIUM 3.9 mmol/L (3.5-5.1)
[2016-12-16 11:39] LABS: HEMATOCRIT 21.2 % (42.0-52.0); HEMOGLOBIN 7.4 gm/dL (14.0-18.0); MCH 31.9 pg (26.0-34.0); MCHC 34.9 g/dL (28.0-37.0); MCV 91.6 fL (80.0-100.0); RBC 2.31 mil/uL (4.50-6.00); RDW 13.5 % (10.5-14.5); WBC 16.1 thou/uL (4.0-11.0)
[2016-12-16 12:45] VITALS: BP 104/44
[2016-12-16 13:37] LABS: ABG SAMPLE TYPE ARTERIAL; BE(vivo) -2.3 mmol/L (-2 to +3); O2(CT) 10.1 mL/dL (15.0-23.0); O2Hb 93.3 % (92.0-98.0); PCO2 30.1 mmHg (35.0-45.0); PO2 72.9 mmHg (80.0-100.0); pH 7.462 (7.360-7.450); sO2 95.6 % (92.0-98.0); tCO2 21.9 mmol/L (24.0-30.0)
[2016-12-16 13:40] LABS: ABG COMMENT PT ON ROOM AIR; STICK SITE R.RADIAL
[2016-12-16 17:04] LABS: CHOLESTEROL 80 mg/dL (<200); HDL CHOLESTEROL 13 mg/dL (>40); LDL CHOLESTEROL 50 mg/dL (<100); TC:HDL 6.2 Ratio (Not establshd); TRIGLYCERIDE 87 mg/dL (<150); VLDL 17 mg/dL (<40)
[2016-12-16 17:06] VITALS: BP 131/59
[2016-12-16 17:30] LABS: TSH 0.48 uIU/mL (0.358-3.740)
[2016-12-16 19:29] VITALS: BP 106/44
[2016-12-17 04:07] VITALS: BP 131/65
[2016-12-17 05:13] LABS: GLYCOHEMOGLOBIN (HGB A1C) 5.2 % (4.8-5.6)
[2016-12-17 08:42] VITALS: BP 138/66
[2016-12-17 11:24] LABS: HEMATOCRIT 23.2 % (42.0-52.0); HEMOGLOBIN 7.9 gm/dL (14.0-18.0); MCH 31.8 pg (26.0-34.0); MCHC 34.2 g/dL (28.0-37.0); RBC 2.5 mil/uL (4.50-6.00); RDW 13.9 % (10.5-14.5); WBC 11.2 thou/uL (4.0-11.0)
[2016-12-17 11:37] LABS: CALCIUM 8.1 mg/dL (8.5-10.1); CREATININE 1.2 mg/dL (0.7-1.3); POTASSIUM 3.3 mmol/L (3.5-5.1)
[2016-12-17 11:42] LABS: MAGNESIUM 1.6 mg/dL (1.8-2.4)
[2016-12-17 12:45] VITALS: BP 115/46
[2016-12-17 16:37] VITALS: BP 139/59
[2016-12-17 19:19] VITALS: BP 141/67
[2016-12-18 04:24] VITALS: BP 115/52
[2016-12-18 06:28] LABS: HEMATOCRIT 23.9 % (42.0-52.0); HEMOGLOBIN 8.2 gm/dL (14.0-18.0); MCH 32.1 pg (26.0-34.0); MCHC 34.4 g/dL (28.0-37.0); MCV 93.5 fL (80.0-100.0); RBC 2.56 mil/uL (4.50-6.00); WBC 8.4 thou/uL (4.0-11.0)
[2016-12-18 06:40] LABS: CALCIUM 7.8 mg/dL (8.5-10.1); CREATININE 1.2 mg/dL (0.7-1.3); MAGNESIUM 1.7 mg/dL (1.8-2.4); POTASSIUM 3.4 mmol/L (3.5-5.1)
[2016-12-18 09:20] VITALS: BP 107/42
[2016-12-18 12:55] VITALS: BP 98/44
[2016-12-18 16:22] VITALS: BP 111/39
[2016-12-18 19:20] VITALS: BP 105/49
[2016-12-19] VITALS (27 sets, daily range): BP systolic 108–152; BP diastolic 50–97
[2016-12-19 03:47] LABS: HEMATOCRIT 21.6 % (42.0-52.0); HEMOGLOBIN 7.5 gm/dL (14.0-18.0); MCH 32.3 pg (26.0-34.0); MCHC 34.7 g/dL (28.0-37.0); MCV 92.9 fL (80.0-100.0); RBC 2.33 mil/uL (4.50-6.00); WBC 8.5 thou/uL (4.0-11.0)
[2016-12-19 03:58] LABS: CALCIUM 7.5 mg/dL (8.5-10.1); CREATININE 1.2 mg/dL (0.7-1.3); MAGNESIUM 1.6 mg/dL (1.8-2.4); POTASSIUM 3.3 mmol/L (3.5-5.1)
[2016-12-19 08:42] LABS: % SATURATION 25 % (20-39); IRON 22 ug/dL (65-175); TIBC 87 ug/dL (250-450); UIBC 65 ug/dL
[2016-12-19 15:50] LABS: ABG SAMPLE TYPE ARTERIAL; BE(vivo) 0.1 mmol/L (-2 to +3); LACTATE 0.89 mmol/L (0.5-2.0); O2(CT) 10.7 mL/dL (15.0-23.0); O2Hb 92.1 % (92.0-98.0); PO2 66.1 mmHg (80.0-100.0); STICK SITE L.RADIAL; pH 7.502 (7.360-7.450); sO2 94.9 % (92.0-98.0); tCO2 23.9 mmol/L (24.0-30.0)
[2016-12-19 15:51] LABS: ABG COMMENT NO COMPLICATIONS
[2016-12-19 17:07] LABS: ABG SAMPLE TYPE ARTERIAL; BE(vivo) 0.2 mmol/L (-2 to +3); HCO3 22.8 mmol/L (22.0-26.0); LACTATE 0.81 mmol/L (0.5-2.0); O2(CT) 11.5 mL/dL (15.0-23.0); O2Hb 96.8 % (92.0-98.0); PCO2 28.9 mmHg (35.0-45.0); PO2 113.7 mmHg (80.0-100.0); STICK SITE R.BRACHIAL; pH 7.514 (7.360-7.450); sO2 98.6 % (92.0-98.0); tCO2 23.6 mmol/L (24.0-30.0)
[2016-12-19 17:29] LABS: HEMATOCRIT 23.4 % (42.0-52.0); HEMOGLOBIN 8.1 gm/dL (14.0-18.0); MCHC 34.5 g/dL (28.0-37.0); MCV 92.8 fL (80.0-100.0); PLATELET COUNT 529 thou/uL (150-400); RBC 2.52 mil/uL (4.50-6.00); RDW 13.7 % (10.5-14.5); WBC 8.3 thou/uL (4.0-11.0)
[2016-12-19 17:30] LABS: MANUAL DIFF YES
[2016-12-19 17:43] LABS: ABSOLUTE NEUTROPHILS 6.9 thou/uL (1.4-8.2); ANISOCYTOSIS SLIGHT; TOTAL CELL COUNT 100
[2016-12-19 17:45] LABS: APTT 34.1 Seconds (24.5-32.8); FIBRINOGEN 442.5 mg/dL (210-360); INR 1.2
[2016-12-19 18:01] LABS: POTASSIUM 3.5 mmol/L (3.5-5.1)
[2016-12-19 18:26] LABS: URINE BILIRUBIN NEGATIVE (Negative); URINE BLOOD TRACE (Negative); URINE COLOR YELLOW; URINE GLUCOSE-RANDOM* NEGATIVE (Negative); URINE KETONES NEGATIVE (Negative); URINE NITRITE NEGATIVE (Negative); URINE PROTEIN (DIPSTICK) NEGATIVE (Negative); URINE SPECIFIC GRAVITY 1.025 (1.003-1.035)
[2016-12-19 18:33] LABS: DIRECT BILIRUBIN 0.4 mg/dL (<0.1-0.3); TOTAL BILIRUBIN 1.1 mg/dL (<0.1-1.0)
[2016-12-19 18:34] LABS: ALBUMIN 1.8 g/dL (3.4-5.0); TOTAL PROTEIN 5.7 g/dL (6.4-8.2)
[2016-12-19 19:16] LABS: ABG SAMPLE TYPE VENOUS; BE(vivo) 0.4 mmol/L (-2 to +3); HCO3 24.6 mmol/L (22.0-26.0); LACTATE 0.67 mmol/L (0.5-2.0); O2Hb VENOUS 68.5 (65.0-85.0); PCO2 VENOUS 37.9 mmHg (41.0-51.0); PO2 VENOUS 36.6 mmHg (35.0-45.0); sO2 VENOUS 71.9 % (65.0-85.0); tCO2 25.8 mmol/L (24.0-30.0)
[2016-12-19 19:17] LABS: Pressure Support 6 cm H20; STICK SITE LINE
[2016-12-19 20:34] LABS: ABG SAMPLE TYPE VENOUS; BE(vivo) -0.5 mmol/L (-2 to +3); HCO3 23.9 mmol/L (22.0-26.0); LACTATE 0.86 mmol/L (0.5-2.0); O2(CT) 13.7 mL/dL (15.0-23.0); O2Hb VENOUS 68.9 (65.0-85.0); PCO2 VENOUS 38.7 mmHg (41.0-51.0); PO2 VENOUS 37.2 mmHg (35.0-45.0); Pressure Support 6 cm H20; STICK SITE LINE; sO2 VENOUS 71.6 % (65.0-85.0); tCO2 25.1 mmol/L (24.0-30.0)
[2016-12-19 20:35] LABS: ABG COMMENT BIPAP 12/ 6
[2016-12-19 21:07] LABS: APTT 32.2 Seconds (24.5-32.8); FIBRINOGEN 395.4 mg/dL (210-360); INR 1.2; PROTIME 12.2 Seconds (9.3-11.4)
[2016-12-19 21:26] LABS: CALCIUM 7.8 mg/dL (8.5-10.1); POTASSIUM 3.7 mmol/L (3.5-5.1)
[2016-12-19 21:54] LABS: ABG SAMPLE TYPE VENOUS; BE(vivo) -1.3 mmol/L (-2 to +3); HCO3 23.1 mmol/L (22.0-26.0); LACTATE 0.98 mmol/L (0.5-2.0); O2(CT) 9.8 mL/dL (15.0-23.0); O2Hb VENOUS 66.6 (65.0-85.0); PCO2 VENOUS 37.5 mmHg (41.0-51.0); Pressure Support 6 cm H20; STICK SITE LINE; sO2 VENOUS 69.7 % (65.0-85.0); tCO2 24.3 mmol/L (24.0-30.0)
[2016-12-19 22:41] LABS: ABG COMMENT BIPAP 12/ 6; ABG SAMPLE TYPE VENOUS; BE(vivo) -1.8 mmol/L (-2 to +3); HCO3 22.7 mmol/L (22.0-26.0); LACTATE 0.81 mmol/L (0.5-2.0); O2(CT) 8.4 mL/dL (15.0-23.0); O2Hb VENOUS 73.2 (65.0-85.0); PCO2 VENOUS 37.3 mmHg (41.0-51.0); PO2 VENOUS 42.3 mmHg (35.0-45.0); Pressure Support 6 cm H20; STICK SITE LINE; sO2 VENOUS 78.5 % (65.0-85.0); tCO2 23.9 mmol/L (24.0-30.0)
[2016-12-19 23:45] LABS: ABG SAMPLE TYPE VENOUS; BE(vivo) -1.5 mmol/L (-2 to +3); HCO3 22.6 mmol/L (22.0-26.0); LACTATE 0.82 mmol/L (0.5-2.0); O2(CT) 9.6 mL/dL (15.0-23.0); O2Hb VENOUS 68.9 (65.0-85.0); PCO2 VENOUS 35.3 mmHg (41.0-51.0); PO2 VENOUS 36.7 mmHg (35.0-45.0); STICK SITE LINE; sO2 VENOUS 71.9 % (65.0-85.0); tCO2 23.7 mmol/L (24.0-30.0)
[2016-12-20] VITALS (27 sets, daily range): BP systolic 100–152; BP diastolic 50–100
[2016-12-20 00:44] LABS: ABG SAMPLE TYPE VENOUS; BE(vivo) -1.7 mmol/L (-2 to +3); HCO3 22.7 mmol/L (22.0-26.0); LACTATE 0.86 mmol/L (0.5-2.0); O2(CT) 8.2 mL/dL (15.0-23.0); O2Hb VENOUS 66.4 (65.0-85.0); PCO2 VENOUS 37.1 mmHg (41.0-51.0); PO2 VENOUS 36.4 mmHg (35.0-45.0); STICK SITE LINE; sO2 VENOUS 70.3 % (65.0-85.0); tCO2 23.9 mmol/L (24.0-30.0)
[2016-12-20 01:08] LABS: POTASSIUM 3.8 mmol/L (3.5-5.1)
[2016-12-20 01:18] LABS: APTT 38.5 Seconds (24.5-32.8); INR 1.2; PROTIME 12.7 Seconds (9.3-11.4)
[2016-12-20 04:22] LABS: APTT 39.4 Seconds (24.5-32.8); INR 1.2; PROTIME 12.4 Seconds (9.3-11.4)
[2016-12-20 04:27] LABS: ABSOLUTE NEUTROPHILS 6.1 thou/uL (1.4-8.2); BASOPHILS 0.7 % (0.0-2.0); EOSINOPHILS 2.8 % (0.0-3.0); HEMOGLOBIN 7.5 gm/dL (14.0-18.0); LYMPHOCYTES 9.4 % (24.0-44.0); MCH 31.9 pg (26.0-34.0); MCHC 33.9 g/dL (28.0-37.0); MCV 93.9 fL (80.0-100.0); MONOCYTES 10.6 % (1.0-8.0); PLATELET COUNT 467 thou/uL (150-400); POLYS 76.5 % (36.0-66.0); RBC 2.35 mil/uL (4.50-6.00); RDW 13.9 % (10.5-14.5); WBC 7.9 thou/uL (4.0-11.0)
[2016-12-20 04:28] LABS: MANUAL DIFF NO
[2016-12-20 04:36] LABS: CALCIUM 7.9 mg/dL (8.5-10.1); MAGNESIUM 1.9 mg/dL (1.8-2.4); POTASSIUM 3.8 mmol/L (3.5-5.1)
[2016-12-21] VITALS (19 sets, daily range): BP systolic 73–187; BP diastolic 45–128
[2016-12-21 03:42] LABS: HEMATOCRIT 21.2 % (42.0-52.0); HEMOGLOBIN 7.3 gm/dL (14.0-18.0); MCH 31.8 pg (26.0-34.0); MCHC 34.3 g/dL (28.0-37.0); MCV 92.7 fL (80.0-100.0); PLATELET COUNT 452 thou/uL (150-400); RBC 2.28 mil/uL (4.50-6.00); RDW 13.8 % (10.5-14.5); WBC 8.1 thou/uL (4.0-11.0)
[2016-12-21 03:55] LABS: MANUAL DIFF YES
[2016-12-21 04:00] LABS: ALBUMIN 1.7 g/dL (3.4-5.0); CALCIUM 7.9 mg/dL (8.5-10.1); CREATININE 0.9 mg/dL (0.7-1.3); MAGNESIUM 1.5 mg/dL (1.8-2.4); POTASSIUM 3.8 mmol/L (3.5-5.1); TOTAL BILIRUBIN 0.8 mg/dL (<0.1-1.0); TOTAL PROTEIN 5.1 g/dL (6.4-8.2)
[2016-12-21 05:32] LABS: ABG SAMPLE TYPE ARTERIAL; BE(vivo) -1.4 mmol/L (-2 to +3); HCO3 21.7 mmol/L (22.0-26.0); LACTATE 0.66 mmol/L (0.5-2.0); O2(CT) 9.8 mL/dL (15.0-23.0); PCO2 29.5 mmHg (35.0-45.0); PO2 63.9 mmHg (80.0-100.0); pH 7.484 (7.360-7.450); sO2 94.2 % (92.0-98.0); tCO2 22.6 mmol/L (24.0-30.0)
[2016-12-21 05:33] LABS: STICK SITE R.RADIAL
[2016-12-21 08:43] LABS: ABSOLUTE NEUTROPHILS 7.2 thou/uL (1.4-8.2); METAMYELOCYTES 1 %; MYELOCYTES 1 %; TOTAL CELL COUNT 100
[2016-12-21 08:44] LABS: ANISOCYTOSIS SLIGHT; POLYCHROMASIA OCCASIONAL
[2016-12-21 14:45] LABS: OBSERVED RETIC COUNT 2.22 % (0.6-2.6)
[2016-12-22 04:00] VITALS: BP 155/75
[2016-12-22 06:58] LABS: HEMATOCRIT 20.8 % (42.0-52.0); HEMOGLOBIN 7.1 gm/dL (14.0-18.0); MCH 32.3 pg (26.0-34.0); MCHC 33.9 g/dL (28.0-37.0); MCV 95.3 fL (80.0-100.0); RBC 2.18 mil/uL (4.50-6.00); RDW 14.2 % (10.5-14.5)
[2016-12-22 07:50] VITALS: BP 149/64
[2016-12-22 08:06] LABS: CALCIUM 7.7 mg/dL (8.5-10.1); CREATININE 0.8 mg/dL (0.7-1.3); POTASSIUM 4.2 mmol/L (3.5-5.1)
[2016-12-22 12:46] VITALS: BP 125/62
[2016-12-22 15:12] VITALS: BP 132/63
[2016-12-22 18:50] VITALS: BP 136/67
[2016-12-23] VITALS (20 sets, daily range): BP systolic 103–165; BP diastolic 53–118
[2016-12-23 11:37] LABS: ABG SAMPLE TYPE ARTERIAL; BE(vivo) -0.3 mmol/L (-2 to +3); HCO3 22.3 mmol/L (22.0-26.0); LACTATE 1.39 mmol/L (0.5-2.0); O2(CT) 11.9 mL/dL (15.0-23.0); O2Hb 93.4 % (92.0-98.0); PCO2 28.6 mmHg (35.0-45.0); PO2 71.8 mmHg (80.0-100.0); STICK SITE L.RADIAL; pH 7.509 (7.360-7.450); tCO2 23.1 mmol/L (24.0-30.0)
[2016-12-23 11:38] LABS: ABG COMMENT NO COMPLICATIONS
[2016-12-23 13:38] LABS: HEMATOCRIT 23.4 % (42.0-52.0); HEMOGLOBIN 7.9 gm/dL (14.0-18.0); MCH 31.4 pg (26.0-34.0); MCV 92.6 fL (80.0-100.0); PLATELET COUNT 430 thou/uL (150-400); RBC 2.52 mil/uL (4.50-6.00); RDW 14.1 % (10.5-14.5); WBC 12.5 thou/uL (4.0-11.0)
[2016-12-23 13:58] LABS: MANUAL DIFF YES
[2016-12-23 13:58] LABS: TRANSFERRIN RECEPTOR ASSAY 16.6 nmol/L (12.2-27.3)
[2016-12-23 14:05] LABS: URINE BILIRUBIN NEGATIVE (Negative); URINE BLOOD 3+ (Negative); URINE COLOR YELLOW; URINE GLUCOSE-RANDOM* TRACE (Negative); URINE KETONES NEGATIVE (Negative); URINE LEUKOCYTES-REFLEX NEGATIVE (Negative); URINE PROTEIN (DIPSTICK) NEGATIVE (Negative); URINE SPECIFIC GRAVITY 1.015 (1.003-1.035); URINE UROBILINOGEN 0.2 E.U./dl (0.2-1.0)
[2016-12-23 14:05] LABS: ALBUMIN 1.9 g/dL (3.4-5.0); CALCIUM 8.4 mg/dL (8.5-10.1); CREATININE 1.1 mg/dL (0.7-1.3); POTASSIUM 4.5 mmol/L (3.5-5.1); TOTAL BILIRUBIN 0.7 mg/dL (<0.1-1.0); TOTAL PROTEIN 5.7 g/dL (6.4-8.2); TROPONIN-I 0.11 ng/mL (<0.04-0.07)
[2016-12-23 14:18] LABS: ABSOLUTE NEUTROPHILS 10.6 thou/uL (1.4-8.2); ANISOCYTOSIS 1+; METAMYELOCYTES 1 %; NUCLEATED RBCS 1 /100WBC; POLYCHROMASIA OCCASIONAL; TOTAL CELL COUNT 100
[2016-12-23 14:26] LABS: SQUAMOUS 0-3 Few /LPF (0-3); URINE RBC >20 Many /HPF (0-2); URINE WBC-REFLEX 0-5 Rare /HPF (0-5)
[2016-12-23 14:27] LABS: CRYSTALS None Seen /LPF (None Seen); HYALINE CASTS 0-3 Few /LPF (None Seen)
[2016-12-23 21:14] LABS: ABG SAMPLE TYPE ARTERIAL; BE(vivo) -0.9 mmol/L (-2 to +3); HCO3 23.1 mmol/L (22.0-26.0); LACTATE 1.13 mmol/L (0.5-2.0); O2Hb 97.1 % (92.0-98.0); PCO2 35.2 mmHg (35.0-45.0); PO2 134.9 mmHg (80.0-100.0); Pressure Support 12 cm H20; STICK SITE L.RADIAL; TIDAL VOLUME 556 ml; pH 7.434 (7.360-7.450); sO2 98.8 % (92.0-98.0); tCO2 24.1 mmol/L (24.0-30.0)
[2016-12-24] VITALS (22 sets, daily range): BP systolic 109–152; BP diastolic 50–114
[2016-12-24 05:13] LABS: ABG SAMPLE TYPE ARTERIAL; BE(vivo) -1.9 mmol/L (-2 to +3); HCO3 22.5 mmol/L (22.0-26.0); LACTATE 0.95 mmol/L (0.5-2.0); O2(CT) 13.2 mL/dL (15.0-23.0); PCO2 36.9 mmHg (35.0-45.0); PO2 79.2 mmHg (80.0-100.0); Pressure Support 12 cm H20; STICK SITE L.RADIAL; pH 7.403 (7.360-7.450); sO2 95.8 % (92.0-98.0); tCO2 23.6 mmol/L (24.0-30.0)
[2016-12-24 05:57] LABS: HEMATOCRIT 23.4 % (42.0-52.0); HEMOGLOBIN 7.8 gm/dL (14.0-18.0); MCHC 33.1 g/dL (28.0-37.0); MCV 93.6 fL (80.0-100.0); PLATELET COUNT 393 thou/uL (150-400); RDW 14.6 % (10.5-14.5); WBC 15.5 thou/uL (4.0-11.0)
[2016-12-24 06:01] LABS: MANUAL DIFF YES
[2016-12-24 06:13] LABS: CALCIUM 8.7 mg/dL (8.5-10.1); MAGNESIUM 1.6 mg/dL (1.8-2.4); POTASSIUM 4.4 mmol/L (3.5-5.1)
[2016-12-24 09:19] LABS: ABSOLUTE NEUTROPHILS 12.7 thou/uL (1.4-8.2); PLATELET ESTIMATE NORMAL; TOTAL CELL COUNT 100
[2016-12-25] VITALS (20 sets, daily range): BP systolic 101–148; BP diastolic 47–121
[2016-12-25 04:21] LABS: CALCIUM 8.1 mg/dL (8.5-10.1); CREATININE 0.9 mg/dL (0.7-1.3); POTASSIUM 4.3 mmol/L (3.5-5.1)
[2016-12-25 04:24] LABS: HEMATOCRIT 21.3 % (42.0-52.0); HEMOGLOBIN 7.4 gm/dL (14.0-18.0); MCH 32.1 pg (26.0-34.0); MCHC 34.9 g/dL (28.0-37.0); RBC 2.32 mil/uL (4.50-6.00); RDW 14.4 % (10.5-14.5); WBC 10.6 thou/uL (4.0-11.0)
[2016-12-26] VITALS (20 sets, daily range): BP systolic 97–160; BP diastolic 42–105
[2016-12-26 04:30] LABS: HEMATOCRIT 21.4 % (42.0-52.0); HEMOGLOBIN 7.4 gm/dL (14.0-18.0); MCH 31.7 pg (26.0-34.0); MCHC 34.5 g/dL (28.0-37.0); MCV 91.8 fL (80.0-100.0); PLATELET COUNT 382 thou/uL (150-400); RBC 2.33 mil/uL (4.50-6.00); RDW 14.4 % (10.5-14.5); WBC 8.1 thou/uL (4.0-11.0)
[2016-12-26 04:51] LABS: ALBUMIN 1.8 g/dL (3.4-5.0); TOTAL BILIRUBIN 0.6 mg/dL (<0.1-1.0); TOTAL PROTEIN 5.7 g/dL (6.4-8.2)
[2016-12-26 05:06] LABS: MANUAL DIFF YES
[2016-12-26 05:35] LABS: ABG SAMPLE TYPE ARTERIAL; BE(vivo) 1.1 mmol/L (-2 to +3); HCO3 24.9 mmol/L (22.0-26.0); LACTATE 0.91 mmol/L (0.5-2.0); O2(CT) 11.3 mL/dL (15.0-23.0); O2Hb 92.3 % (92.0-98.0); PCO2 36.2 mmHg (35.0-45.0); PO2 69.8 mmHg (80.0-100.0); pH 7.456 (7.360-7.450); sO2 94.9 % (92.0-98.0)
[2016-12-26 05:36] LABS: STICK SITE L.RADIAL
[2016-12-26 07:56] LABS: ABSOLUTE NEUTROPHILS 5.7 thou/uL (1.4-8.2); METAMYELOCYTES 1 %; TOTAL CELL COUNT 100
[2016-12-27 00:01] VITALS: BP 128/85
[2016-12-27 03:45] VITALS: BP 146/38
[2016-12-27 06:06] LABS: HEMOGLOBIN 7.3 gm/dL (14.0-18.0); MCH 30.7 pg (26.0-34.0); MCHC 33.4 g/dL (28.0-37.0); MCV 91.9 fL (80.0-100.0); RBC 2.39 mil/uL (4.50-6.00); WBC 7.5 thou/uL (4.0-11.0)
[2016-12-27 06:14] LABS: CALCIUM 8.5 mg/dL (8.5-10.1); POTASSIUM 3.9 mmol/L (3.5-5.1)
[2016-12-27 08:02] VITALS: BP 132/48
[2016-12-27 16:00] VITALS: BP 134/57
[2016-12-28 06:00] VITALS: BP 111/53
[2016-12-28 06:15] LABS: HEMATOCRIT 22.6 % (42.0-52.0); HEMOGLOBIN 7.8 gm/dL (14.0-18.0); MCH 31.8 pg (26.0-34.0); MCHC 34.5 g/dL (28.0-37.0); MCV 92.1 fL (80.0-100.0); RBC 2.46 mil/uL (4.50-6.00); RDW 14.3 % (10.5-14.5); WBC 8.8 thou/uL (4.0-11.0)
[2016-12-28 06:17] LABS: CALCIUM 8.1 mg/dL (8.5-10.1); CREATININE 0.9 mg/dL (0.7-1.3); POTASSIUM 3.8 mmol/L (3.5-5.1)
[2016-12-28 07:18] VITALS: BP 108/51
[2016-12-28 11:08] VITALS: BP 126/49
[2016-12-28 18:03] VITALS: BP 123/49
[2016-12-28 20:05] VITALS: BP 146/63
[2016-12-29 03:16] VITALS: BP 127/61
[2016-12-29 06:07] LABS: HEMATOCRIT 23.3 % (42.0-52.0); MCH 31.5 pg (26.0-34.0); MCHC 34.2 g/dL (28.0-37.0); MCV 91.9 fL (80.0-100.0); RBC 2.54 mil/uL (4.50-6.00); RDW 14.4 % (10.5-14.5); WBC 8.8 thou/uL (4.0-11.0)
[2016-12-29 06:20] LABS: CALCIUM 8.6 mg/dL (8.5-10.1); CREATININE 0.8 mg/dL (0.7-1.3); POTASSIUM 3.9 mmol/L (3.5-5.1)
[2016-12-29 06:51] LABS: ABG SAMPLE TYPE ARTERIAL; BE(vivo) 3.5 mmol/L (-2 to +3); HCO3 26.8 mmol/L (22.0-26.0); LACTATE 0.77 mmol/L (0.5-2.0); O2(CT) 11.2 mL/dL (15.0-23.0); O2Hb 94.1 % (92.0-98.0); PCO2 35.2 mmHg (35.0-45.0); STICK SITE L.RADIAL; pH 7.499 (7.360-7.450); sO2 96.3 % (92.0-98.0); tCO2 27.9 mmol/L (24.0-30.0)
[2016-12-29 08:00] VITALS: BP 133/70
[2016-12-29 12:00] VITALS: BP 101/49
[2016-12-29 16:00] VITALS: BP 143/70
[2016-12-29 19:29] VITALS: BP 150/90
[2016-12-29 23:59] VITALS: BP 118/48
[2016-12-30 03:18] VITALS: BP 126/56
[2016-12-30 05:49] LABS: HEMATOCRIT 24.3 % (42.0-52.0); HEMOGLOBIN 8.3 gm/dL (14.0-18.0); MCH 31.5 pg (26.0-34.0); MCHC 34.4 g/dL (28.0-37.0); MCV 91.6 fL (80.0-100.0); RBC 2.65 mil/uL (4.50-6.00); RDW 14.7 % (10.5-14.5); WBC 9.4 thou/uL (4.0-11.0)
[2016-12-30 06:05] LABS: CALCIUM 8.5 mg/dL (8.5-10.1); CREATININE 0.9 mg/dL (0.7-1.3); POTASSIUM 3.9 mmol/L (3.5-5.1)
[2016-12-30 08:00] VITALS: BP 111/50
[2016-12-30 12:00] VITALS: BP 121/45
[2016-12-30 16:00] VITALS: BP 131/57
[2016-12-30 19:25] VITALS: BP 130/71
[2016-12-31 01:50] VITALS: BP 139/54
[2016-12-31 06:26] LABS: HEMATOCRIT 23.3 % (42.0-52.0); MCH 31.5 pg (26.0-34.0); MCHC 34.4 g/dL (28.0-37.0); MCV 91.4 fL (80.0-100.0); RBC 2.55 mil/uL (4.50-6.00); RDW 14.8 % (10.5-14.5); WBC 8.1 thou/uL (4.0-11.0)
[2016-12-31 06:44] LABS: ALBUMIN 2.1 g/dL (3.4-5.0); CALCIUM 8.3 mg/dL (8.5-10.1); CREATININE 0.8 mg/dL (0.7-1.3); MAGNESIUM 1.8 mg/dL (1.8-2.4); TOTAL BILIRUBIN 0.5 mg/dL (<0.1-1.0); TOTAL PROTEIN 6.2 g/dL (6.4-8.2)
[2016-12-31 09:52] VITALS: BP 136/49
[2016-12-31 15:54] LABS: ABG SAMPLE TYPE ARTERIAL; BE(vivo) 2.1 mmol/L (-2 to +3); HCO3 25.6 mmol/L (22.0-26.0); LACTATE 0.93 mmol/L (0.5-2.0); O2(CT) 13.3 mL/dL (15.0-23.0); O2Hb 93.7 % (92.0-98.0); PCO2 35.7 mmHg (35.0-45.0); PO2 77.4 mmHg (80.0-100.0); STICK SITE R.RADIAL; pH 7.474 (7.360-7.450); sO2 96.3 % (92.0-98.0); tCO2 26.7 mmol/L (24.0-30.0)
[2016-12-31 17:30] VITALS: BP 140/82
[2016-12-31 19:47] VITALS: BP 112/56
[2017-01-01 03:40] VITALS: BP 121/55
[2017-01-01 06:02] LABS: RDW 14.9 % (10.5-14.5)
[2017-01-01 06:05] LABS: ABSOLUTE NEUTROPHILS 6.1 thou/uL (1.4-8.2); BASOPHILS 0.9 % (0.0-2.0); EOSINOPHILS 5.4 % (0.0-3.0); HEMATOCRIT 24.2 % (42.0-52.0); HEMOGLOBIN 8.2 gm/dL (14.0-18.0); LYMPHOCYTES 11.9 % (24.0-44.0); MCH 30.9 pg (26.0-34.0); MONOCYTES 10.9 % (1.0-8.0); PLATELET COUNT 452 thou/uL (150-400); POLYS 70.9 % (36.0-66.0); RBC 2.66 mil/uL (4.50-6.00); WBC 8.7 thou/uL (4.0-11.0)
[2017-01-01 06:07] LABS: MANUAL DIFF NO
[2017-01-01 06:27] LABS: CALCIUM 8.2 mg/dL (8.5-10.1); MAGNESIUM 1.9 mg/dL (1.8-2.4); POTASSIUM 4.4 mmol/L (3.5-5.1)
[2017-01-01 07:34] VITALS: BP 146/82
[2017-01-01 07:55] LABS: ABG SAMPLE TYPE ARTERIAL; BE(vivo) 4.3 mmol/L (-2 to +3); HCO3 27.6 mmol/L (22.0-26.0); LACTATE 1.19 mmol/L (0.5-2.0); O2(CT) 15.1 mL/dL (15.0-23.0); O2Hb 93.7 % (92.0-98.0); PCO2 36.5 mmHg (35.0-45.0); PO2 73.1 mmHg (80.0-100.0); pH 7.497 (7.360-7.450); sO2 95.9 % (92.0-98.0); tCO2 28.8 mmol/L (24.0-30.0)
[2017-01-01 07:56] LABS: STICK SITE R.RADIAL
[2017-01-01 11:27] VITALS: BP 128/51
[2017-01-01 15:29] VITALS: BP 115/52
[2017-01-01 20:30] VITALS: BP 110/60
[2017-01-02] VITALS (41 sets, daily range): BP systolic 56–139; BP diastolic 24–103
[2017-01-02 06:37] LABS: HEMATOCRIT 24.9 % (42.0-52.0); HEMOGLOBIN 8.5 gm/dL (14.0-18.0); MANUAL DIFF YES; MCH 31.4 pg (26.0-34.0); MCHC 34.4 g/dL (28.0-37.0); MCV 91.5 fL (80.0-100.0); PLATELET COUNT 465 thou/uL (150-400); RBC 2.72 mil/uL (4.50-6.00); RDW 15.1 % (10.5-14.5); WBC 10.8 thou/uL (4.0-11.0)
[2017-01-02 06:48] LABS: CALCIUM 8.7 mg/dL (8.5-10.1); CREATININE 1.2 mg/dL (0.7-1.3); MAGNESIUM 2.3 mg/dL (1.8-2.4); POTASSIUM 4.5 mmol/L (3.5-5.1)
[2017-01-02 07:24] LABS: ABSOLUTE NEUTROPHILS 8.5 thou/uL (1.4-8.2); ANISOCYTOSIS 2+; POLYCHROMASIA 3+; TOTAL CELL COUNT 100
[2017-01-02 15:31] LABS: HEMOGLOBIN 8.6 gm/dL (14.0-18.0); MCHC 34.3 g/dL (28.0-37.0); MCV 90.2 fL (80.0-100.0); RBC 2.77 mil/uL (4.50-6.00); RDW 15.2 % (10.5-14.5); WBC 19.4 thou/uL (4.0-11.0)
[2017-01-02 15:40] LABS: CALCIUM 8.2 mg/dL (8.5-10.1); CREATININE 1.9 mg/dL (0.7-1.3); POTASSIUM 5.3 mmol/L (3.5-5.1)
[2017-01-02 15:47] LABS: ALBUMIN 2.2 g/dL (3.4-5.0); TOTAL BILIRUBIN 0.7 mg/dL (<0.1-1.0); TOTAL PROTEIN 6.5 g/dL (6.4-8.2); TROPONIN-I 0.06 ng/mL (<0.04-0.07)
[2017-01-02 16:08] LABS: ABG SAMPLE TYPE ARTERIAL; BE(vivo) -0.5 mmol/L (-2 to +3); HCO3 23.1 mmol/L (22.0-26.0); LACTATE 2.45 mmol/L (0.5-2.0); O2(CT) 13.4 mL/dL (15.0-23.0); O2Hb 97.5 % (92.0-98.0); PCO2 33.6 mmHg (35.0-45.0); PO2 155.8 mmHg (80.0-100.0); STICK SITE L.RADIAL; TIDAL VOLUME 600 ml; pH 7.455 (7.360-7.450); sO2 99.1 % (92.0-98.0); tCO2 24.1 mmol/L (24.0-30.0)
[2017-01-02 17:46] LABS: URINE BILIRUBIN 1+ (Negative); URINE BLOOD 3+ (Negative); URINE GLUCOSE-RANDOM* NEGATIVE (Negative); URINE KETONES TRACE (Negative); URINE NITRITE NEGATIVE (Negative); URINE PROTEIN (DIPSTICK) 2+ (Negative); URINE SPECIFIC GRAVITY 1.025 (1.003-1.035); URINE UROBILINOGEN 0.2 E.U./dl (0.2-1.0)
[2017-01-02 17:47] LABS: URINE COLOR DARK YELLOW
[2017-01-02 17:49] LABS: ICTOTEST (BILI CONFIRMATORY) Positive (Negative)
[2017-01-02 17:54] LABS: SQUAMOUS None Seen /LPF (0-3)
[2017-01-02 17:55] LABS: BACTERIA >30 Many /HPF (None Seen); CASTS None Seen /LPF (None Seen); CRYSTALS None Seen /LPF (None Seen); URINE RBC >20 Many /HPF (0-2); URINE WBC >25 Many /HPF (0-5); YEAST Present (None Seen)
[2017-01-03] VITALS (59 sets, daily range): BP systolic 71–163; BP diastolic 24–100
[2017-01-03 05:13] LABS: HEMATOCRIT 22.7 % (42.0-52.0); HEMOGLOBIN 7.4 gm/dL (14.0-18.0); MCH 30.5 pg (26.0-34.0); MCHC 32.7 g/dL (28.0-37.0); MCV 93.1 fL (80.0-100.0); RBC 2.44 mil/uL (4.50-6.00); RDW 15.3 % (10.5-14.5); WBC 20.2 thou/uL (4.0-11.0)
[2017-01-03 05:33] LABS: ABG SAMPLE TYPE ARTERIAL; HCO3 23.8 mmol/L (22.0-26.0); LACTATE 4.29 mmol/L (0.5-2.0); O2(CT) 10.6 mL/dL (15.0-23.0); O2Hb 97.6 % (92.0-98.0); PCO2 39.7 mmHg (35.0-45.0); pH 7.395 (7.360-7.450); sO2 98.8 % (92.0-98.0)
[2017-01-03 05:34] LABS: STICK SITE R.RADIAL; TIDAL VOLUME 600 ml
[2017-01-03 05:37] LABS: ALBUMIN 1.9 g/dL (3.4-5.0); CALCIUM 7.5 mg/dL (8.5-10.1); TOTAL BILIRUBIN 0.5 mg/dL (<0.1-1.0); TOTAL PROTEIN 5.9 g/dL (6.4-8.2)
[2017-01-03 05:40] LABS: POTASSIUM 3.9 mmol/L (3.5-5.1)
[2017-01-04] VITALS (93 sets, daily range): BP systolic 93–157; BP diastolic 33–74
[2017-01-04 04:53] LABS: HEMATOCRIT 20.9 % (42.0-52.0); MCH 30.5 pg (26.0-34.0); MCHC 33.3 g/dL (28.0-37.0); MCV 91.6 fL (80.0-100.0); PLATELET COUNT 395 thou/uL (150-400); RBC 2.28 mil/uL (4.50-6.00); RDW 14.8 % (10.5-14.5); WBC 17.2 thou/uL (4.0-11.0)
[2017-01-04 05:02] LABS: ABG SAMPLE TYPE ARTERIAL; BE(vivo) 0 mmol/L (-2 to +3); HCO3 24.2 mmol/L (22.0-26.0); LACTATE 1.08 mmol/L (0.5-2.0); O2Hb 97.1 % (92.0-98.0); PCO2 36.8 mmHg (35.0-45.0); PO2 131.8 mmHg (80.0-100.0); pH 7.435 (7.360-7.450); sO2 98.7 % (92.0-98.0); tCO2 25.3 mmol/L (24.0-30.0)
[2017-01-04 05:03] LABS: FIO2 40 %; STICK SITE R.RADIAL; TIDAL VOLUME 600 ml
[2017-01-04 05:13] LABS: ALBUMIN 1.8 g/dL (3.4-5.0); CALCIUM 7.9 mg/dL (8.5-10.1); CREATININE 0.9 mg/dL (0.7-1.3); POTASSIUM 4.2 mmol/L (3.5-5.1); TOTAL BILIRUBIN 0.5 mg/dL (<0.1-1.0); TOTAL PROTEIN 5.8 g/dL (6.4-8.2)
[2017-01-04 05:25] LABS: MANUAL DIFF YES
[2017-01-04 08:26] LABS: ABSOLUTE NEUTROPHILS 14.8 thou/uL (1.4-8.2); ANISOCYTOSIS 1+; TOTAL CELL COUNT 100
[2017-01-05] VITALS (78 sets, daily range): BP systolic 88–145; BP diastolic 39–123
[2017-01-05 08:14] LABS: RDW 15.2 % (10.5-14.5); WBC 9.2 thou/uL (4.0-11.0)
[2017-01-05 08:15] LABS: MCH 30.8 pg (26.0-34.0); MCHC 33.8 g/dL (28.0-37.0); MCV 91.1 fL (80.0-100.0); PLATELET COUNT 356 thou/uL (150-400); RBC 2.16 mil/uL (4.50-6.00)
[2017-01-05 08:16] LABS: CALCIUM 8.2 mg/dL (8.5-10.1); CREATININE 0.9 mg/dL (0.7-1.3); POTASSIUM 4.3 mmol/L (3.5-5.1)
[2017-01-05 08:20] LABS: MANUAL DIFF YES
[2017-01-05 08:23] LABS: HEMATOCRIT 19.6 % (42.0-52.0); HEMOGLOBIN 6.6 gm/dL (14.0-18.0)
[2017-01-05 09:08] LABS: ABSOLUTE NEUTROPHILS 7.4 thou/uL (1.4-8.2); TOTAL CELL COUNT 100
[2017-01-05 09:09] LABS: ANISOCYTOSIS 1+; HYPOCHROMASIA 1+
[2017-01-06] VITALS (82 sets, daily range): BP systolic 107–148; BP diastolic 42–105
[2017-01-06 04:47] LABS: HEMATOCRIT 25.1 % (42.0-52.0); HEMOGLOBIN 8.4 gm/dL (14.0-18.0); MCH 29.5 pg (26.0-34.0); MCHC 33.2 g/dL (28.0-37.0); MCV 88.6 fL (80.0-100.0); PLATELET COUNT 351 thou/uL (150-400); RBC 2.84 mil/uL (4.50-6.00); RDW 16.5 % (10.5-14.5)
[2017-01-06 04:54] LABS: CALCIUM 8.5 mg/dL (8.5-10.1); CREATININE 0.9 mg/dL (0.7-1.3); POTASSIUM 4.2 mmol/L (3.5-5.1)
[2017-01-06 05:19] LABS: MANUAL DIFF YES
[2017-01-06 05:22] LABS: ABSOLUTE NEUTROPHILS 6.2 thou/uL (1.4-8.2); ANISOCYTOSIS 1+; LARGE PLATELETS FEW; TOTAL CELL COUNT 100
[2017-01-06 10:35] LABS: APTT 28.3 Seconds (24.5-32.8); PROTIME 10.4 Seconds (9.3-11.4)
[2017-01-07] VITALS (26 sets, daily range): BP systolic 116–167; BP diastolic 50–126
[2017-01-07 04:06] LABS: HEMATOCRIT 24.8 % (42.0-52.0); HEMOGLOBIN 8.3 gm/dL (14.0-18.0)
[2017-01-08] VITALS (24 sets, daily range): BP systolic 104–155; BP diastolic 61–115
[2017-01-08 05:16] LABS: HEMATOCRIT 23.8 % (42.0-52.0); HEMOGLOBIN 7.9 gm/dL (14.0-18.0); MCH 30.2 pg (26.0-34.0); MCHC 33.3 g/dL (28.0-37.0); MCV 90.6 fL (80.0-100.0); RBC 2.62 mil/uL (4.50-6.00); RDW 16.3 % (10.5-14.5); WBC 7.1 thou/uL (4.0-11.0)
[2017-01-08 05:27] LABS: ALBUMIN 1.6 g/dL (3.4-5.0); CALCIUM 8.4 mg/dL (8.5-10.1); CREATININE 0.8 mg/dL (0.7-1.3); MAGNESIUM 1.7 mg/dL (1.8-2.4); PHOSPHORUS 3.1 mg/dL (2.5-4.9); POTASSIUM 3.7 mmol/L (3.5-5.1); TOTAL BILIRUBIN 0.5 mg/dL (<0.1-1.0); TOTAL PROTEIN 5.7 g/dL (6.4-8.2)
[2017-01-08 10:24] LABS: ABG COMMENT CPAP TRIAL; ABG SAMPLE TYPE ARTERIAL; BE(vivo) 1.6 mmol/L (-2 to +3); HCO3 25.2 mmol/L (22.0-26.0); LACTATE 0.59 mmol/L (0.5-2.0); O2(CT) 12.2 mL/dL (15.0-23.0); O2Hb 97.7 % (92.0-98.0); PCO2 35.4 mmHg (35.0-45.0); PO2 162.8 mmHg (80.0-100.0); Pressure Support 8 cm H20; STICK SITE R.RADIAL; sO2 99.2 % (92.0-98.0); tCO2 26.3 mmol/L (24.0-30.0)
[2017-01-09] VITALS (16 sets, daily range): BP systolic 125–182; BP diastolic 48–114
[2017-01-09 05:43] LABS: HEMATOCRIT 22.1 % (42.0-52.0); HEMOGLOBIN 7.5 gm/dL (14.0-18.0); MCH 30.5 pg (26.0-34.0); MCV 89.6 fL (80.0-100.0); RBC 2.46 mil/uL (4.50-6.00); RDW 16.1 % (10.5-14.5); WBC 6.1 thou/uL (4.0-11.0)
[2017-01-09 06:00] LABS: CREATININE 0.7 mg/dL (0.7-1.3); MAGNESIUM 1.6 mg/dL (1.8-2.4); PHOSPHORUS 2.7 mg/dL (2.5-4.9); POTASSIUM 3.6 mmol/L (3.5-5.1)
[2017-01-10] VITALS (24 sets, daily range): BP systolic 107–149; BP diastolic 44–70
[2017-01-10 05:37] LABS: HEMATOCRIT 22.5 % (42.0-52.0); HEMOGLOBIN 7.7 gm/dL (14.0-18.0); MCH 30.7 pg (26.0-34.0); MCHC 34.1 g/dL (28.0-37.0); MCV 90.1 fL (80.0-100.0); RBC 2.5 mil/uL (4.50-6.00); RDW 15.6 % (10.5-14.5); WBC 6.1 thou/uL (4.0-11.0)
[2017-01-10 05:46] LABS: CALCIUM 8.2 mg/dL (8.5-10.1); CREATININE 0.6 mg/dL (0.7-1.3); POTASSIUM 3.6 mmol/L (3.5-5.1)
[2017-01-11] VITALS (24 sets, daily range): BP systolic 128–171; BP diastolic 57–76
[2017-01-11 04:51] LABS: HEMATOCRIT 22.6 % (42.0-52.0); HEMOGLOBIN 7.7 gm/dL (14.0-18.0); MCH 30.2 pg (26.0-34.0); MCHC 34.1 g/dL (28.0-37.0); MCV 88.7 fL (80.0-100.0); RBC 2.55 mil/uL (4.50-6.00); RDW 15.4 % (10.5-14.5); WBC 6.2 thou/uL (4.0-11.0)
[2017-01-11 05:05] LABS: ALBUMIN 1.6 g/dL (3.4-5.0); CALCIUM 8.3 mg/dL (8.5-10.1); CREATININE 0.7 mg/dL (0.7-1.3); MAGNESIUM 1.6 mg/dL (1.8-2.4); PHOSPHORUS 2.4 mg/dL (2.5-4.9); POTASSIUM 3.4 mmol/L (3.5-5.1); TOTAL BILIRUBIN 0.4 mg/dL (<0.1-1.0); TOTAL PROTEIN 5.5 g/dL (6.4-8.2)
[2017-01-11 11:28] LABS: MAGNESIUM 1.9 mg/dL (1.8-2.4); POTASSIUM 3.5 mmol/L (3.5-5.1)
[2017-01-12] VITALS (51 sets, daily range): BP systolic 101–181; BP diastolic 42–141
[2017-01-12 05:00] LABS: HEMATOCRIT 24.1 % (42.0-52.0); HEMOGLOBIN 8.2 gm/dL (14.0-18.0); MCH 30.2 pg (26.0-34.0); MCV 88.9 fL (80.0-100.0); RBC 2.72 mil/uL (4.50-6.00); RDW 15.8 % (10.5-14.5); WBC 6.2 thou/uL (4.0-11.0)
[2017-01-12 05:12] LABS: CALCIUM 8.4 mg/dL (8.5-10.1); CREATININE 0.7 mg/dL (0.7-1.3); MAGNESIUM 1.7 mg/dL (1.8-2.4); PHOSPHORUS 2.9 mg/dL (2.5-4.9); POTASSIUM 4.1 mmol/L (3.5-5.1)
[2017-01-13] VITALS (43 sets, daily range): BP systolic 89–172; BP diastolic 45–130
[2017-01-13 05:29] LABS: ABG SAMPLE TYPE ARTERIAL; BE(vivo) -1.2 mmol/L (-2 to +3); HCO3 21.9 mmol/L (22.0-26.0); LACTATE 0.84 mmol/L (0.5-2.0); O2(CT) 13.7 mL/dL (15.0-23.0); O2Hb 96.9 % (92.0-98.0); PCO2 30.9 mmHg (35.0-45.0); PO2 110.9 mmHg (80.0-100.0); pH 7.469 (7.360-7.450); sO2 98.4 % (92.0-98.0); tCO2 22.9 mmol/L (24.0-30.0)
[2017-01-13 05:30] LABS: HEMATOCRIT 22.9 % (42.0-52.0); HEMOGLOBIN 7.8 gm/dL (14.0-18.0); MCH 30.4 pg (26.0-34.0); MCV 89.5 fL (80.0-100.0); RBC 2.56 mil/uL (4.50-6.00); RDW 16.3 % (10.5-14.5); WBC 8.7 thou/uL (4.0-11.0)
[2017-01-13 05:32] LABS: STICK SITE R.RADIAL; TIDAL VOLUME 600 ml
[2017-01-13 05:36] LABS: CALCIUM 8.1 mg/dL (8.5-10.1); POTASSIUM 4.1 mmol/L (3.5-5.1)
[2017-01-14] VITALS (25 sets, daily range): BP systolic 102–162; BP diastolic 49–137
[2017-01-14 21:48] LABS: URINE BILIRUBIN NEGATIVE (Negative); URINE BLOOD 2+ (Negative); URINE COLOR YELLOW; URINE GLUCOSE-RANDOM* NEGATIVE (Negative); URINE KETONES NEGATIVE (Negative); URINE LEUKOCYTES-REFLEX TRACE (Negative); URINE PROTEIN (DIPSTICK) TRACE (Negative); URINE SPECIFIC GRAVITY 1.025 (1.003-1.035); URINE UROBILINOGEN 0.2 E.U./dl (0.2-1.0)
[2017-01-14 22:08] LABS: CASTS None Seen /LPF (None Seen); CRYSTALS None Seen /LPF (None Seen); SQUAMOUS None Seen /LPF (0-3); URINE RBC 0-2 Rare /HPF (0-2); URINE WBC-REFLEX 0-5 Rare /HPF (0-5)
[2017-01-15] VITALS (42 sets, daily range): BP systolic 95–152; BP diastolic 45–117
[2017-01-15 06:09] LABS: HEMATOCRIT 21.5 % (42.0-52.0); HEMOGLOBIN 7.2 gm/dL (14.0-18.0); MCH 30.1 pg (26.0-34.0); MCHC 33.4 g/dL (28.0-37.0); MCV 90.3 fL (80.0-100.0); PLATELET COUNT 266 thou/uL (150-400); RBC 2.39 mil/uL (4.50-6.00); RDW 16.8 % (10.5-14.5); WBC 8.8 thou/uL (4.0-11.0)
[2017-01-15 06:14] LABS: MANUAL DIFF YES
[2017-01-15 06:23] LABS: ALBUMIN 1.6 g/dL (3.4-5.0); CALCIUM 7.9 mg/dL (8.5-10.1); CREATININE 0.8 mg/dL (0.7-1.3); POTASSIUM 3.3 mmol/L (3.5-5.1); TOTAL BILIRUBIN 0.5 mg/dL (<0.1-1.0); TOTAL PROTEIN 5.5 g/dL (6.4-8.2)
[2017-01-15 08:06] LABS: ABSOLUTE NEUTROPHILS 7.5 thou/uL (1.4-8.2); ANISOCYTOSIS 1+; TOTAL CELL COUNT 100
[2017-01-16] VITALS (25 sets, daily range): BP systolic 99–164; BP diastolic 43–149
[2017-01-16 04:34] LABS: ABSOLUTE NEUTROPHILS 5.5 thou/uL (1.4-8.2); BASOPHILS 0.6 % (0.0-2.0); EOSINOPHILS 3.4 % (0.0-3.0); HEMATOCRIT 22.3 % (42.0-52.0); HEMOGLOBIN 7.6 gm/dL (14.0-18.0); LYMPHOCYTES 12.9 % (24.0-44.0); MCH 30.6 pg (26.0-34.0); MCHC 33.9 g/dL (28.0-37.0); MCV 90.1 fL (80.0-100.0); MONOCYTES 9.9 % (1.0-8.0); PLATELET COUNT 268 thou/uL (150-400); POLYS 73.2 % (36.0-66.0); RBC 2.48 mil/uL (4.50-6.00); RDW 15.8 % (10.5-14.5); WBC 7.5 thou/uL (4.0-11.0)
[2017-01-16 04:41] LABS: CALCIUM 7.9 mg/dL (8.5-10.1); CREATININE 0.7 mg/dL (0.7-1.3); POTASSIUM 3.5 mmol/L (3.5-5.1)
[2017-01-16 04:48] LABS: MANUAL DIFF NO
[2017-01-17] VITALS (22 sets, daily range): BP systolic 103–159; BP diastolic 47–79
[2017-01-17 06:28] LABS: HEMATOCRIT 21.9 % (42.0-52.0); HEMOGLOBIN 7.5 gm/dL (14.0-18.0); MCH 30.5 pg (26.0-34.0); MCHC 34.4 g/dL (28.0-37.0); MCV 88.9 fL (80.0-100.0); RBC 2.46 mil/uL (4.50-6.00); RDW 15.9 % (10.5-14.5)
[2017-01-17 06:36] LABS: CALCIUM 7.9 mg/dL (8.5-10.1); CREATININE 0.7 mg/dL (0.7-1.3); POTASSIUM 3.4 mmol/L (3.5-5.1)
[2017-01-17 12:07] LABS: ABG COMMENT CPAP TRIAL 2 HRS; ABG SAMPLE TYPE ARTERIAL; BE(vivo) -0.6 mmol/L (-2 to +3); HCO3 23.2 mmol/L (22.0-26.0); LACTATE 0.62 mmol/L (0.5-2.0); O2(CT) 10.9 mL/dL (15.0-23.0); PCO2 34.6 mmHg (35.0-45.0); PO2 115.9 mmHg (80.0-100.0); Pressure Support 6 cm H20; STICK SITE R.RADIAL; pH 7.445 (7.360-7.450); sO2 98.4 % (92.0-98.0); tCO2 24.3 mmol/L (24.0-30.0)
[2017-01-18] VITALS (19 sets, daily range): BP systolic 121–157; BP diastolic 51–118
[2017-01-18 09:03] LABS: HEMOGLOBIN 8.4 gm/dL (14.0-18.0); MCH 31.2 pg (26.0-34.0); MCHC 34.8 g/dL (28.0-37.0); MCV 89.7 fL (80.0-100.0); RBC 2.68 mil/uL (4.50-6.00); WBC 6.7 thou/uL (4.0-11.0)
[2017-01-18 09:06] LABS: CALCIUM 8.1 mg/dL (8.5-10.1); CREATININE 0.6 mg/dL (0.7-1.3); POTASSIUM 3.8 mmol/L (3.5-5.1)
[2017-01-19 05:01] LABS: HEMOGLOBIN 8.2 gm/dL (14.0-18.0); MCH 30.4 pg (26.0-34.0); MCHC 34.1 g/dL (28.0-37.0); MCV 89.2 fL (80.0-100.0); RBC 2.69 mil/uL (4.50-6.00); WBC 7.2 thou/uL (4.0-11.0)
[2017-01-19 05:14] LABS: ALBUMIN 1.7 g/dL (3.4-5.0); CALCIUM 8.1 mg/dL (8.5-10.1); CREATININE 0.7 mg/dL (0.7-1.3); MAGNESIUM 1.4 mg/dL (1.8-2.4); POTASSIUM 3.7 mmol/L (3.5-5.1); TOTAL BILIRUBIN 0.5 mg/dL (<0.1-1.0); TOTAL PROTEIN 5.7 g/dL (6.4-8.2)
[2017-01-19 05:17] LABS: ABG SAMPLE TYPE ARTERIAL; BE(vivo) 0.9 mmol/L (-2 to +3); LACTATE 0.64 mmol/L (0.5-2.0); O2(CT) 11.8 mL/dL (15.0-23.0); O2Hb 94.2 % (92.0-98.0); PCO2 32.1 mmHg (35.0-45.0); PO2 76.1 mmHg (80.0-100.0); STICK SITE R.BRACHIAL; pH 7.491 (7.360-7.450); sO2 96.3 % (92.0-98.0)
[2017-01-19 05:18] LABS: TIDAL VOLUME 600 ml
[2017-01-19] MEDS ORDERED: ROCEPHIN 11 GM/1001 IV (14:07)
[2017-01-19] MEDS ORDERED: VANCOMYCIN100 MG/ML PO (14:08)
[2017-01-19] MEDS ORDERED: DUONEB 2.5-0.5 M3 ML INH (14:08)
[2017-01-19] MEDS ORDERED: SEROQUEL 25 MG25 M1 PO (14:09)
[2017-01-19] MEDS ORDERED: LANTUS100 UNIT/M SUBQ (14:11)
[2017-01-19] MEDS ORDERED: B12INJ IM (14:12)
== END 2017-01-19 19:44 | DRG 3 ==
LOC: ER 08:49 → ICU 10:57 → 4W 10:57 → EROBS 10:57 → 4W 13:05 → ICU 12-19 16:56 → 3N 12-21 16:54 → ICU 12-23 18:53 → 4S 12-26 19:01 → ICU 01-02 14:27
PROVIDERS: Family Medicine; Hospitalist; Internal Medicine; Internal Medicine Endocrinology, Diabetes & Metabolism; Internal Medicine Gastroenterology; Internal Medicine Geriatric Medicine; Internal Medicine Hematology & Oncology; Internal Medicine Pulmonary Disease; Nurse Practitioner Family; Physician Assistant; Psychiatry & Neurology Neurology; Specialist
PROC: 3E0336Z Introduction of Nutritional Substance into Peripheral Vein, Percutaneous Approach (ICD-10-PCS; 2016-12-19)
PROC: 02HV33Z Insertion of Infusion Device into Superior Vena Cava, Percutaneous Approach (ICD-10-PCS; 2016-12-19)
PROC: 5A1955Z Respiratory Ventilation, Greater than 96 Consecutive Hours (ICD-10-PCS; 2017-01-02)
PROC: 30233N1 Transfusion of Nonautologous Red Blood Cells into Peripheral Vein, Percutaneous Approach (ICD-10-PCS; 2017-01-05)
PROC: 0B110F4 Bypass Trachea to Cutaneous with Tracheostomy Device, Open Approach (ICD-10-PCS; principal; 2017-01-12)
PROC: 0BW10FZ Revision of Tracheostomy Device in Trachea, Open Approach (ICD-10-PCS; 2017-01-14)
DX: A41.9 Sepsis, unspecified organism (principal); J69.0 Pneumonitis due to inhalation of food and vomit; I21.4 Non-ST elevation (NSTEMI) myocardial infarction; J96.01 Acute respiratory failure with hypoxia; E43 Unspecified severe protein-calorie malnutrition; G92 Toxic encephalopathy; E87.1 Hypo-osmolality and hyponatremia; A04.7 Enterocolitis due to Clostridium difficile; I82.619 Acute embolism and thrombosis of superficial veins of unspecified upper extremity; J95.03 Malfunction of tracheostomy stoma; E78.5 Hyperlipidemia, unspecified; I25.10 Atherosclerotic heart disease of native coronary artery without angina pectoris; J44.9 Chronic obstructive pulmonary disease, unspecified; I50.9 Heart failure, unspecified; I11.0 Hypertensive heart disease with heart failure; D50.9 Iron deficiency anemia, unspecified; I27.2 Other secondary pulmonary hypertension; E11.649 Type 2 diabetes mellitus with hypoglycemia without coma; K21.9 Gastro-esophageal reflux disease without esophagitis; R13.10 Dysphagia, unspecified; B96.1 Klebsiella pneumoniae [K. pneumoniae] as the cause of diseases classified elsewhere; I99.9 Unspecified disorder of circulatory system; Y83.9 Surgical procedure, unspecified as the cause of abnormal reaction of the patient, or of later complication, without mention of misadventure at the time of the procedure; Y70.8 Miscellaneous anesthesiology devices associated with adverse incidents, not elsewhere classified; Z88.1 Allergy status to other antibiotic agents; Z68.30 Body mass index [BMI] 30.0-30.9, adult; Z88.6 Allergy status to analgesic agent; Z88.2 Allergy status to sulfonamides; Z95.5 Presence of coronary angioplasty implant and graft; Z95.1 Presence of aortocoronary bypass graft; Z89.421 Acquired absence of other right toe(s); Z87.81 Personal history of (healed) traumatic fracture
CPT/HCPCS: 10045; 10078; 10096; 10102; 10203; 10204; 27000; 50101; 50386; 50403; 50517; 56525; 56639; 62110; 62900; 85076

== ENCOUNTER → 2017-02-17 | Outpatient (CLI) | payer OTHER ==
[~2017-02-17] MED LIST: ACTOS 30 MG TAB30 M2 PO; ASPIR 8181 M1 PO; ATIVAN0.5 MG PO; B12INJ IM; CHOLESTYRAMINE P4 GM PO; CIPROFLOXACIN500 M1 PO; DUONEB 2.5-0.5 M3 ML INH; GLYBURIDE 5 MG T5 M1 PO; HALDOL 0.5 MG0.5 MG PO; HYDROCHLOROTHIA25 M2 PO; LANTUS100 UNIT/M SUBQ; LASIX 40 MG TAB40 M2 PO; LIPITOR 20 MG T20 M1 PO; LISINOPRIL40 MG PO; METFORMIN HCL500 MG PO; METOPROLOL TART25 MG PO; MIDODRINE HCL 55 M1 PO; NORCO 5-325 TA1 EACH PO; NUVIGIL50 MG PO; PEPCID20 MG PO; PLAVIX 75 MG TA75 M1 PO; ROBITUSSIN100 MG/53 PO; ROCEPHIN 11 GM/1001 IV; SEROQUEL 25 MG25 M1 PO; SIMVASTATIN40 MG PO; VANCOMYCIN100 MG/ML PO; VITAMIN D2000 UNIT PO
[2017-02-17 08:04] VITALS: BP 133/78
== END | disposition home or self-care (01) ==
LOC: SPEC 07:02
DX: K94.23 Gastrostomy malfunction (principal); E63.8 Other specified nutritional deficiencies; I10 Essential (primary) hypertension; E11.9 Type 2 diabetes mellitus without complications; I50.9 Heart failure, unspecified; I25.10 Atherosclerotic heart disease of native coronary artery without angina pectoris; E78.00 Pure hypercholesterolemia, unspecified; J44.9 Chronic obstructive pulmonary disease, unspecified; Z79.4 Long term (current) use of insulin; D64.9 Anemia, unspecified; Z88.2 Allergy status to sulfonamides; Z98.890 Other specified postprocedural states; Z88.8 Allergy status to other drugs, medicaments and biological substances

== ENCOUNTER 2017-02-24 19:05 | Inpatient (IN) | payer OTHER ==
[~2017-02-24] VITALS: Ht 182.9 cm; Wt 93.5 kg
[2017-02-24] VITALS (13 sets, daily range): BP systolic 55–157; BP diastolic 30–105
--- NOTE | ~2017-02-24 | EKG ---
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: Bony BREWER : 1940 Requested By: Fransisco Landry Order Number: [id number] MD: Obdulio Lozano Measurements Intervals [place] Rate: 110 P: 84 MT: 168 QRS: 174 QRSD: 144 T: 9 QT: 358 QTc: 485 Interpretive Statements Sinus tachycardia RBBB and LPFB Compared to ECG 12/13/2016 09:16:10 Probably no significant change was found Electronically Signed On 02-25-2017 8:32:14 CDT by Obdulio Lozano [email or web address] <ELECTRONICALLY SIGNED> By: Obdulio Lozano MD, [facility] 02/25/17 0832 9 9 Obdulio Lozano MD, [facility] /EPI
--- NOTE | ~2017-02-24 | EKG ---
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 : 1940 Requested By: Neil Christie Order Number: [id number] MD: Obdulio Lozano Measurements Intervals [place] Rate: 134 P: [place]: QRS: -111 QRSD: 145 T: 42 QT: 356 QTc: 532 Interpretive Statements Atrial flutter with predominant 2:1 AV block RBBB and LAFB Baseline wander in lead(s) V6 Compared to ECG 02/25/2017 07:40:10 no significant change was found Electronically Signed On 03-01-2017 8:39:52 CDT by Obdulio Lozano [email or web address] <ELECTRONICALLY SIGNED> By: Obdulio Lozano MD, [facility] 03/01/17 0839 0932 0932 Obdulio Lozano MD, [facility] /EPI
--- NOTE | ~2017-02-24 | EKG ---
[address] [place] [address] ELECTROCARDIOGRAM REPORT Name: NUNU SALINAS Room #: 238-P ADM IN M.R.#: [id number] Admission: 02/24/17 Attend Phys: Neil Christie Discharge: Date of : 42 Report #: [id number] THIS REPORT FOR: //name// [facility] Test Date: 2017-02-24 Test Time: 19:12:23 Pat Name: NUNU SALINAS Department: Room: 238 Gender: Vaccine Specialist: MISA Gutierrez : 1940 Requested By: Luis Manuel Fraire Order Number: [id number] MD: Obdulio Lozano Measurements Intervals [place] Rate: 99 P: [place]: QRS: 114 QRSD: 142 T: 43 QT: 348 QTc: 447 Interpretive Statements Unknown supraventricular rhythm. Recommend repeat tracing in the absence of artifact RBBB and LPFB Baseline wander in lead(s) Compared to ECG 12/13/2016 09:16:10 Comparison limited by presence of artifact Electronically Signed On 02-25-2017 8:28:31 CDT by Obdulio Lozano [email or web address] <ELECTRONICALLY SIGNED> By: Obdulio Lozano MD, [facility] 02/25/17 0828 11 11 Obdulio Lozano MD, [facility] /EPI
--- NOTE | ~2017-02-24 | EKG ---
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: paco : 1940 Requested By: Fransisco Landry Order Number: [id number] MD: Obdulio Lozano Measurements Intervals [place] Rate: 134 P: 0 [place]: QRS: -90 QRSD: 161 T: -37 QT: 377 QTc: 563 Interpretive Statements Atrial flutter Right bundle branch block Compared to ECG 02/25/2017 07:40:10 Atrial flutter is now present Electronically Signed On 03-01-2017 8:00:22 CDT by Obdulio Lozano [email or web address] <ELECTRONICALLY SIGNED> By: Obdulio Lozano MD, [facility] 03/01/17 0800 21 21 Obdulio Lozano MD, [facility] /EPI
--- NOTE | ~2017-02-24 | 2DMMODE ---
[facility] [address] [place] [address] 2 D/M-MODE ECHOCARDIOGRAM Name: NUNU SALINAS Room #: 238-P [facility] IN ..#: [id number] Admission: 02/24/17 Attend Phys: Neil Amaro Discharge: Date of : 44 Date of Service: 02/25/17 0840 Report #: [id number] THIS REPORT FOR: //name// APPROVED REPORT Study performed: 02/25/2017 07:05:28 EXAM: Comprehensive 2D, Doppler, and color-flow Echocardiogram Patient Location: Bedside Room #: [facility] Status: routine Other Information Study Quality: Fair/Patient in ICU on vent Technically limited study due to lung artifact and disease, body habitus. Indications Short of air, cardiomyopathy, stenosis. Hx: CABG, CHF, COPD, HTN, HLP, DM. 2D Dimensions RVDd: 38.78 mm LVEF(%): 51.30 (>50%) IVSd: 12.41 (7-11mm) LVDd: 44.69 mm PWd: 11.84 (7-11mm) LVDs: 33.05 (25-40mm) Aortic Root: 37.10 mm Mcbride's LVEF: 51.30 % Volumes Left Atrial Volume (Systole) Single Plane 4CH: 26.42 mL Single Plane 2CH: 36.13 mL LA ESV Index: 16.00 mL/m2 Aortic Valve AoV Peak Alton.: 1.42 m/s AO Peak Gr.: 10.11 mmHg LVOT Max P.60 mmHg LVOT Max V: 1.07 m/s Mitral Valve E/A Ratio: 0.7 MV Decel. Time: 225.05 ms MV E Max Alton.: 0.79 m/s MV A Alton.: 1.07 m/s [facility] [place] [address] 2 D/M-MODE ECHOCARDIOGRAM Name: NUNU SALINAS Room #: 238-P [facility] IN .R.#: [id number] Admission: 02/24/17 Attend Phys: Neil Amaro Discharge: Date of : 44 Date of Service: 02/25/17 0840 Report #: [id number] MV PHT: 65.26 ms IVRT: 64.59 ms Pulmonary Valve PV Peak Alton.: 1.86 m/s PV Peak Gr.: 13.94 mmHg Tricuspid Valve TR Peak Alton.: 3.10 m/s RAP Estimate: 5.00 mmHg TR Peak Gr.: 38.53 mmHg PA Pressure: 44.00 mmHg Left Ventricle The left ventricle is normal size. There is normal LV segmental wall motion. There is normal left ventricular wall thickness. Left ventricular systolic function is normal LVEF is 60-65%. Grade I - abnormal relaxation pattern. Right Ventricle The right ventricle is normal size. Right ventricle appears hypokinetic. Atria The left atrium size is normal. The right atrium size is normal. Aortic Valve Aortic valve is mildly calcified. No aortic regurgitation is present. There is no aortic valvular stenosis. Mitral Valve Mild mitral annular calcification. No mitral regurgitation. No evidence of mitral valve stenosis. Tricuspid Valve The tricuspid valve is normal in structure. There is mild tricuspid regurgitation. The right atrial pressure is estimated at 5 mmHg. There is moderate pulmonary hypertension with an estimated PAP of 45mmHg. Pulmonic Valve The pulmonary valve is normal in structure. Trace pulmonic regurgitation. Great Vessels The aortic root is normal in size. IVC is normal in size and collapses >50% with inspiration. [facility] [address] [place] [address] 2 D/M-MODE ECHOCARDIOGRAM Name: NUNU SALINAS Room #: 238-P [facility] IN ..#: [id number] Admission: 02/24/17 Attend Phys: Neil Amaro Discharge: Date of : 44 Date of Service: 02/25/17 0840 Report #: [id number] Pericardium There is no pericardial effusion. <Conclusion> Left ventricular systolic function is normal There is normal LV segmental wall motion. LVEF is 60-65%. Grade I diastolic dysfunction Aortic valve is mildly calcified. No aortic regurgitation or stenosis. Mild mitral annular calcification. No mitral regurgitation. Pulmonary artery pressure of 45mmHg There is no pericardial effusion. <ELECTRONICALLY SIGNED> By: Obdulio Lozano MD, [facility] 02/25/17839 9 9 Obdulio Lozano MD, [facility] /INF
[2017-02-24 19:25] LABS: ABG SAMPLE TYPE ARTERIAL; BE(vivo) -7.7 mmol/L (-2 to +3); HCO3 20.9 mmol/L (22.0-26.0); LACTATE 2.82 mmol/L (0.5-2.0); O2(CT) 17.7 mL/dL (15.0-23.0); O2Hb 98.4 % (92.0-98.0); PCO2 56.1 mmHg (35.0-45.0); PO2 240.8 mmHg (80.0-100.0); sO2 99.3 % (92.0-98.0); tCO2 22.6 mmol/L (24.0-30.0)
[2017-02-24 19:26] LABS: ABG COMMENT A/C RATE 20; STICK SITE R.BRACHIAL; TIDAL VOLUME 500 ml; pH 7.189 (7.360-7.450)
[2017-02-24 19:33] LABS: ABSOLUTE NEUTROPHILS 2.9 thou/uL (1.4-8.2); BASOPHILS 0.4 % (0.0-2.0); EOSINOPHILS 0.2 % (0.0-3.0); HEMATOCRIT 33.8 % (42.0-52.0); HEMOGLOBIN 11.4 gm/dL (14.0-18.0); MANUAL DIFF NO; MCH 31.1 pg (26.0-34.0); MCHC 33.7 g/dL (28.0-37.0); MCV 92.3 fL (80.0-100.0); MONOCYTES 5.6 % (1.0-8.0); PLATELET COUNT 433 thou/uL (150-400); POLYS 73.8 % (36.0-66.0); RBC 3.66 mil/uL (4.50-6.00); RDW 17.5 % (10.5-14.5)
[2017-02-24 19:45] LABS: CALCIUM 8.3 mg/dL (8.5-10.1); CREATININE 2.1 mg/dL (0.7-1.3); POTASSIUM 4.8 mmol/L (3.5-5.1)
[2017-02-24 19:53] LABS: ALBUMIN 1.8 g/dL (3.4-5.0); MAGNESIUM 1.6 mg/dL (1.8-2.4); TOTAL BILIRUBIN 0.8 mg/dL (<0.1-1.0); TOTAL PROTEIN 6.1 g/dL (6.4-8.2); TROPONIN-I 0.1 ng/mL (<0.04-0.07)
[2017-02-24 20:10] LABS: URINE BILIRUBIN NEGATIVE (Negative); URINE BLOOD TRACE (Negative); URINE COLOR YELLOW; URINE GLUCOSE-RANDOM* NEGATIVE (Negative); URINE KETONES NEGATIVE (Negative); URINE LEUKOCYTES-REFLEX 2+ (Negative); URINE PROTEIN (DIPSTICK) TRACE (Negative); URINE UROBILINOGEN 0.2 E.U./dl (0.2-1.0)
[2017-02-24 20:28] LABS: APTT 31.5 Seconds (24.5-32.8); FIBRINOGEN 454.1 mg/dL (210-360); INR 1.2
[2017-02-24 20:38] LABS: AMYLASE 132 U/L (25-115)
[2017-02-24 20:43] LABS: HYALINE CASTS 0-3 Few /LPF (None Seen); SQUAMOUS 4-10 Moderate /LPF (0-3); URINE WBC-REFLEX >25 Many /HPF (0-5)
[2017-02-24 20:44] LABS: CALCIUM OXALATE 0-3 Few /LPF (None Seen); URINE RBC 0-2 Rare /HPF (0-2)
[2017-02-24 22:24] LABS: ABG SAMPLE TYPE VENOUS; BE(vivo) -11.4 mmol/L (-2 to +3); HCO3 17.5 mmol/L (22.0-26.0); LACTATE 2.25 mmol/L (0.5-2.0); O2(CT) 10.9 mL/dL (15.0-23.0); O2Hb VENOUS 67.5 (65.0-85.0); PCO2 VENOUS 52.2 mmHg (41.0-51.0); PO2 VENOUS 44.5 mmHg (35.0-45.0); STICK SITE LINE; sO2 VENOUS 66.5 % (65.0-85.0); tCO2 19.1 mmol/L (24.0-30.0)
[2017-02-24 22:25] LABS: TIDAL VOLUME 500 ml
[2017-02-24 22:35] LABS: ABG SAMPLE TYPE ARTERIAL; BE(vivo) -10.8 mmol/L (-2 to +3); HCO3 17.1 mmol/L (22.0-26.0); LACTATE 2.24 mmol/L (0.5-2.0); O2(CT) 16.1 mL/dL (15.0-23.0); O2Hb 97.7 % (92.0-98.0); PCO2 46.3 mmHg (35.0-45.0); PO2 152.9 mmHg (80.0-100.0); STICK SITE R.RADIAL; pH 7.185 (7.360-7.450); sO2 98.5 % (92.0-98.0); tCO2 18.5 mmol/L (24.0-30.0)
[2017-02-24 22:36] LABS: TIDAL VOLUME 500 ml
[2017-02-24 23:20] LABS: ABG SAMPLE TYPE VENOUS; BE(vivo) -9.5 mmol/L (-2 to +3); HCO3 19.2 mmol/L (22.0-26.0); LACTATE 2.39 mmol/L (0.5-2.0); O2(CT) 12.9 mL/dL (15.0-23.0); O2Hb VENOUS 77.7 (65.0-85.0); PCO2 VENOUS 54.3 mmHg (41.0-51.0); PO2 VENOUS 50.4 mmHg (35.0-45.0); STICK SITE LINE; sO2 VENOUS 75.1 % (65.0-85.0); tCO2 20.9 mmol/L (24.0-30.0)
[2017-02-24 23:21] LABS: TIDAL VOLUME 500 ml
[2017-02-25] VITALS (95 sets, daily range): BP systolic 44–153; BP diastolic 32–74
[2017-02-25 00:39] LABS: ABG SAMPLE TYPE VENOUS; BE(vivo) -10.3 mmol/L (-2 to +3); HCO3 17.8 mmol/L (22.0-26.0); LACTATE 2.47 mmol/L (0.5-2.0); O2(CT) 11.8 mL/dL (15.0-23.0); O2Hb VENOUS 73.7 (65.0-85.0); PCO2 VENOUS 48.3 mmHg (41.0-51.0); PO2 VENOUS 45.6 mmHg (35.0-45.0); STICK SITE LINE; TIDAL VOLUME 500 ml; sO2 VENOUS 70.6 % (65.0-85.0); tCO2 19.3 mmol/L (24.0-30.0)
[2017-02-25 01:31] LABS: ABG SAMPLE TYPE VENOUS; BE(vivo) -11.7 mmol/L (-2 to +3); HCO3 16.4 mmol/L (22.0-26.0); LACTATE 2.26 mmol/L (0.5-2.0); O2(CT) 11.6 mL/dL (15.0-23.0); O2Hb VENOUS 75.2 (65.0-85.0); PCO2 VENOUS 46.1 mmHg (41.0-51.0); PO2 VENOUS 47.4 mmHg (35.0-45.0); sO2 VENOUS 72.2 % (65.0-85.0); tCO2 17.8 mmol/L (24.0-30.0)
[2017-02-25 02:20] LABS: STICK SITE LINE; TIDAL VOLUME 500 ml
[2017-02-25 02:22] LABS: ABG SAMPLE TYPE VENOUS; HCO3 16.9 mmol/L (22.0-26.0); LACTATE 2.71 mmol/L (0.5-2.0); O2(CT) 11.3 mL/dL (15.0-23.0); O2Hb VENOUS 70.9 (65.0-85.0); PCO2 VENOUS 51.6 mmHg (41.0-51.0); PO2 VENOUS 43.6 mmHg (35.0-45.0); STICK SITE LINE; sO2 VENOUS 64.8 % (65.0-85.0); tCO2 18.5 mmol/L (24.0-30.0)
[2017-02-25 02:23] LABS: TIDAL VOLUME 500 ml
[2017-02-25 03:42] LABS: ABG SAMPLE TYPE VENOUS; BE(vivo) -11.8 mmol/L (-2 to +3); HCO3 16.4 mmol/L (22.0-26.0); LACTATE 2.49 mmol/L (0.5-2.0); O2(CT) 10.5 mL/dL (15.0-23.0); O2Hb VENOUS 69.1 (65.0-85.0); PCO2 VENOUS 47.4 mmHg (41.0-51.0); PO2 VENOUS 40.9 mmHg (35.0-45.0); sO2 VENOUS 62.3 % (65.0-85.0); tCO2 17.9 mmol/L (24.0-30.0)
[2017-02-25 03:43] LABS: STICK SITE LINE; TIDAL VOLUME 500 ml
[2017-02-25 06:00] LABS: HEMATOCRIT 29.3 % (42.0-52.0); HEMOGLOBIN 9.9 gm/dL (14.0-18.0); MCH 31.2 pg (26.0-34.0); MCHC 33.6 g/dL (28.0-37.0); MCV 92.7 fL (80.0-100.0); RBC 3.17 mil/uL (4.50-6.00); RDW 17.8 % (10.5-14.5); WBC 10.6 thou/uL (4.0-11.0)
[2017-02-25 06:01] LABS: PLATELET COUNT 323 thou/uL (150-400)
[2017-02-25 06:02] LABS: MANUAL DIFF YES
[2017-02-25 06:08] LABS: ABG SAMPLE TYPE ARTERIAL; BE(vivo) -12.5 mmol/L (-2 to +3); HCO3 15.2 mmol/L (22.0-26.0); LACTATE 2.58 mmol/L (0.5-2.0); O2(CT) 13.9 mL/dL (15.0-23.0); O2Hb 88.7 % (92.0-98.0); STICK SITE L.RADIAL; pH 7.177 (7.360-7.450); sO2 86.8 % (92.0-98.0); tCO2 16.5 mmol/L (24.0-30.0)
[2017-02-25 06:09] LABS: TIDAL VOLUME 500 ml
[2017-02-25 06:20] LABS: ALBUMIN 1.5 g/dL (3.4-5.0); CALCIUM 7.2 mg/dL (8.5-10.1); CREATININE 1.7 mg/dL (0.7-1.3); MAGNESIUM 1.6 mg/dL (1.8-2.4); POTASSIUM 4.3 mmol/L (3.5-5.1); TOTAL BILIRUBIN 0.5 mg/dL (<0.1-1.0); TOTAL PROTEIN 5.4 g/dL (6.4-8.2); TROPONIN-I 0.18 ng/mL (<0.04-0.07)
[2017-02-25 09:08] LABS: ABSOLUTE NEUTROPHILS 7.8 thou/uL (1.4-8.2); METAMYELOCYTES 10 %; MYELOCYTES 6 %; PLATELET ESTIMATE NORMAL; PROMYELOCYTES 1 %; TOTAL CELL COUNT 100
[2017-02-26] VITALS (90 sets, daily range): BP systolic 95–159; BP diastolic 44–85
[2017-02-26 00:22] LABS: POTASSIUM 4.9 mmol/L (3.5-5.1)
[2017-02-26 04:13] LABS: ABG SAMPLE TYPE ARTERIAL; BE(vivo) -9.2 mmol/L (-2 to +3); HCO3 18.9 mmol/L (22.0-26.0); LACTATE 3.41 mmol/L (0.5-2.0); O2(CT) 13.4 mL/dL (15.0-23.0); O2Hb 96.4 % (92.0-98.0); PCO2 51.6 mmHg (35.0-45.0); PO2 99.1 mmHg (80.0-100.0); sO2 95.8 % (92.0-98.0); tCO2 20.5 mmol/L (24.0-30.0)
[2017-02-26 04:14] LABS: ABG COMMENT A/C MODE; STICK SITE R.BRACHIAL; TIDAL VOLUME 500 ml; pH 7.181 (7.360-7.450)
[2017-02-26 04:27] LABS: HEMATOCRIT 25.9 % (42.0-52.0); HEMOGLOBIN 8.3 gm/dL (14.0-18.0); MCH 30.4 pg (26.0-34.0); MCHC 32.2 g/dL (28.0-37.0); MCV 94.3 fL (80.0-100.0); PLATELET COUNT 301 thou/uL (150-400); RBC 2.75 mil/uL (4.50-6.00)
[2017-02-26 04:37] LABS: MANUAL DIFF YES
[2017-02-26 04:38] LABS: WBC 25.9 thou/uL (4.0-11.0)
[2017-02-26 05:34] LABS: ANISOCYTOSIS 2+; MACROCYTES 1+; METAMYELOCYTES 6 %; POLYCHROMASIA OCCASIONAL; TOTAL CELL COUNT 100
[2017-02-26 05:40] LABS: ALBUMIN 1.4 g/dL (3.4-5.0); CALCIUM 7.5 mg/dL (8.5-10.1); CREATININE 2.1 mg/dL (0.7-1.3); PHOSPHORUS 5.1 mg/dL (2.5-4.9); TOTAL BILIRUBIN 0.4 mg/dL (<0.1-1.0); TOTAL PROTEIN 5.5 g/dL (6.4-8.2)
[2017-02-26 11:31] LABS: ABG SAMPLE TYPE ARTERIAL; HCO3 22.6 mmol/L (22.0-26.0); LACTATE 2.95 mmol/L (0.5-2.0); O2(CT) 13.4 mL/dL (15.0-23.0); O2Hb 97.3 % (92.0-98.0); PCO2 48.5 mmHg (35.0-45.0); PO2 120.3 mmHg (80.0-100.0); sO2 97.9 % (92.0-98.0); tCO2 24.1 mmol/L (24.0-30.0)
[2017-02-26 11:32] LABS: STICK SITE R.RADIAL; pH 7.287 (7.360-7.450)
[2017-02-26 11:34] LABS: TIDAL VOLUME 500 ml
[2017-02-27] VITALS (15 sets, daily range): BP systolic 93–118; BP diastolic 44–75
[2017-02-27 05:35] LABS: HEMATOCRIT 22.8 % (42.0-52.0); HEMOGLOBIN 8.1 gm/dL (14.0-18.0); MCH 31.8 pg (26.0-34.0); MCHC 35.4 g/dL (28.0-37.0); RBC 2.54 mil/uL (4.50-6.00); RDW 17.6 % (10.5-14.5); WBC 17.3 thou/uL (4.0-11.0)
[2017-02-27 05:37] LABS: MANUAL DIFF YES
[2017-02-27 05:38] LABS: ABG SAMPLE TYPE ARTERIAL; BE(vivo) -0.6 mmol/L (-2 to +3); O2(CT) 14.5 mL/dL (15.0-23.0); O2Hb 97.2 % (92.0-98.0); PCO2 39.5 mmHg (35.0-45.0); PO2 109.5 mmHg (80.0-100.0); pH 7.402 (7.360-7.450); tCO2 25.2 mmol/L (24.0-30.0)
[2017-02-27 05:39] LABS: ABG COMMENT AC28 500 +5 40%; STICK SITE LRA; TIDAL VOLUME 500 ml
[2017-02-27 05:49] LABS: ALBUMIN 1.3 g/dL (3.4-5.0); CALCIUM 7.5 mg/dL (8.5-10.1); CREATININE 1.1 mg/dL (0.7-1.3); POTASSIUM 3.1 mmol/L (3.5-5.1); TOTAL BILIRUBIN 0.4 mg/dL (<0.1-1.0)
[2017-02-27 08:26] LABS: ABSOLUTE NEUTROPHILS 16.1 thou/uL (1.4-8.2); TOTAL CELL COUNT 100
[2017-02-27 08:27] LABS: ANISOCYTOSIS 2+; POLYCHROMASIA OCCASIONAL
[2017-02-27 08:28] LABS: PLATELET COUNT 195 thou/uL (150-400)
[2017-02-27 15:36] LABS: ABG SAMPLE TYPE ARTERIAL; BE(vivo) 3.4 mmol/L (-2 to +3); HCO3 28.6 mmol/L (22.0-26.0); LACTATE 2.56 mmol/L (0.5-2.0); O2(CT) 12.8 mL/dL (15.0-23.0); O2Hb 97.4 % (92.0-98.0); PCO2 46.6 mmHg (35.0-45.0); PO2 123.1 mmHg (80.0-100.0); pH 7.406 (7.360-7.450); sO2 98.4 % (92.0-98.0)
[2017-02-27 15:38] LABS: STICK SITE R.RADIAL; TIDAL VOLUME 500 ml
[2017-02-28] VITALS (74 sets, daily range): BP systolic 79–183; BP diastolic 55–106
[2017-02-28 05:30] LABS: ABG SAMPLE TYPE ARTERIAL; BE(vivo) 2.9 mmol/L (-2 to +3); HCO3 26.9 mmol/L (22.0-26.0); LACTATE 1.62 mmol/L (0.5-2.0); O2(CT) 13.9 mL/dL (15.0-23.0); O2Hb 97.7 % (92.0-98.0); PCO2 39.1 mmHg (35.0-45.0); PO2 113.5 mmHg (80.0-100.0); STICK SITE RRA; TIDAL VOLUME 500 ml; pH 7.456 (7.360-7.450); sO2 98.3 % (92.0-98.0); tCO2 28.1 mmol/L (24.0-30.0)
[2017-02-28 05:31] LABS: ABG COMMENT AC18 500 +5 40%
[2017-03-01] VITALS (48 sets, daily range): BP systolic 79–124; BP diastolic 47–96
[2017-03-01 05:32] LABS: ABSOLUTE NEUTROPHILS 8.8 thou/uL (1.4-8.2); BASOPHILS 0.2 % (0.0-2.0); EOSINOPHILS 0.4 % (0.0-3.0); HEMATOCRIT 26.1 % (42.0-52.0); HEMOGLOBIN 8.7 gm/dL (14.0-18.0); LYMPHOCYTES 13.6 % (24.0-44.0); MCH 30.6 pg (26.0-34.0); MCHC 33.5 g/dL (28.0-37.0); MCV 91.2 fL (80.0-100.0); MONOCYTES 11.8 % (1.0-8.0); PLATELET COUNT 183 thou/uL (150-400); RBC 2.86 mil/uL (4.50-6.00); RDW 17.3 % (10.5-14.5)
[2017-03-01 05:33] LABS: MANUAL DIFF NO
[2017-03-02] VITALS (44 sets, daily range): BP systolic 92–136; BP diastolic 46–84
[2017-03-02 12:09] LABS: ALBUMIN 1.2 g/dL (3.4-5.0); CREATININE 0.8 mg/dL (0.7-1.3); POTASSIUM 3.7 mmol/L (3.5-5.1); TOTAL BILIRUBIN 0.6 mg/dL (<0.1-1.0)
[2017-03-02 15:06] LABS: ALPHA TOCOPHEROL 11.6 mg/L (5.3-17.5)
[2017-03-03] VITALS (25 sets, daily range): BP systolic 93–127; BP diastolic 45–87
[2017-03-03 04:20] LABS: HEMATOCRIT 23.3 % (42.0-52.0); MCHC 34.2 g/dL (28.0-37.0); MCV 90.7 fL (80.0-100.0); RBC 2.57 mil/uL (4.50-6.00); RDW 17.2 % (10.5-14.5); WBC 9.4 thou/uL (4.0-11.0)
[2017-03-03 05:13] LABS: ABG SAMPLE TYPE ARTERIAL; BE(vivo) 5.4 mmol/L (-2 to +3); HCO3 28.6 mmol/L (22.0-26.0); LACTATE 1.33 mmol/L (0.5-2.0); O2(CT) 11.7 mL/dL (15.0-23.0); O2Hb 96.5 % (92.0-98.0); PCO2 35.7 mmHg (35.0-45.0); PO2 92.8 mmHg (80.0-100.0); STICK SITE L.RADIAL; TIDAL VOLUME 500 ml; pH 7.521 (7.360-7.450); sO2 97.8 % (92.0-98.0); tCO2 29.7 mmol/L (24.0-30.0)
[2017-03-03 10:42] LABS: MAGNESIUM 1.9 mg/dL (1.8-2.4); POTASSIUM 3.6 mmol/L (3.5-5.1)
[2017-03-03 14:59] LABS: ALBUMIN 1.2 g/dL (3.4-5.0); CREATININE 0.8 mg/dL (0.7-1.3); POTASSIUM 3.8 mmol/L (3.5-5.1); TOTAL BILIRUBIN 0.4 mg/dL (<0.1-1.0); TOTAL PROTEIN 4.9 g/dL (6.4-8.2)
[2017-03-04] VITALS (24 sets, daily range): BP systolic 97–133; BP diastolic 44–63
[2017-03-04 05:44] LABS: HEMATOCRIT 24.6 % (42.0-52.0); HEMOGLOBIN 8.4 gm/dL (14.0-18.0); MCH 31.3 pg (26.0-34.0); MCV 91.9 fL (80.0-100.0); RBC 2.68 mil/uL (4.50-6.00); RDW 17.5 % (10.5-14.5); WBC 10.2 thou/uL (4.0-11.0)
[2017-03-04 06:17] LABS: ALBUMIN 1.3 g/dL (3.4-5.0); CALCIUM 8.2 mg/dL (8.5-10.1); CREATININE 0.8 mg/dL (0.7-1.3); POTASSIUM 3.4 mmol/L (3.5-5.1)
[2017-03-04 12:29] LABS: MAGNESIUM 1.8 mg/dL (1.8-2.4); POTASSIUM 3.4 mmol/L (3.5-5.1)
[2017-03-05] VITALS (23 sets, daily range): BP systolic 112–151; BP diastolic 48–73
[2017-03-05 17:28] LABS: ALBUMIN 1.2 g/dL (3.4-5.0); DIRECT BILIRUBIN 0.1 mg/dL (<0.1-0.3); TOTAL BILIRUBIN 0.3 mg/dL (<0.1-1.0); TOTAL PROTEIN 4.9 g/dL (6.4-8.2)
[2017-03-06] VITALS (24 sets, daily range): BP systolic 101–159; BP diastolic 46–71
[2017-03-07] VITALS (24 sets, daily range): BP systolic 102–158; BP diastolic 45–77
[2017-03-07 04:52] LABS: HEMATOCRIT 22.3 % (42.0-52.0); HEMOGLOBIN 7.6 gm/dL (14.0-18.0); MCHC 33.9 g/dL (28.0-37.0); MCV 91.3 fL (80.0-100.0); RBC 2.44 mil/uL (4.50-6.00); RDW 16.6 % (10.5-14.5); WBC 11.1 thou/uL (4.0-11.0)
[2017-03-07 04:56] LABS: ALBUMIN 1.2 g/dL (3.4-5.0); CALCIUM 8.2 mg/dL (8.5-10.1); CREATININE 0.7 mg/dL (0.7-1.3); POTASSIUM 4.2 mmol/L (3.5-5.1); TOTAL BILIRUBIN 0.3 mg/dL (<0.1-1.0); TOTAL PROTEIN 5.1 g/dL (6.4-8.2)
[2017-03-08] VITALS (55 sets, daily range): BP systolic 87–157; BP diastolic 39–75
[2017-03-08 05:45] LABS: HEMATOCRIT 21.7 % (42.0-52.0); HEMOGLOBIN 7.5 gm/dL (14.0-18.0); MCH 31.4 pg (26.0-34.0); MCHC 34.5 g/dL (28.0-37.0); MCV 91.3 fL (80.0-100.0); RBC 2.37 mil/uL (4.50-6.00); RDW 16.9 % (10.5-14.5); WBC 10.1 thou/uL (4.0-11.0)
[2017-03-08 06:00] LABS: ALBUMIN 1.2 g/dL (3.4-5.0); CALCIUM 8.3 mg/dL (8.5-10.1); CREATININE 0.7 mg/dL (0.7-1.3); DIRECT BILIRUBIN 0.1 mg/dL (<0.1-0.3); PHOSPHORUS 2.6 mg/dL (2.5-4.9); POTASSIUM 4.2 mmol/L (3.5-5.1); TOTAL BILIRUBIN 0.3 mg/dL (<0.1-1.0); TOTAL PROTEIN 5.1 g/dL (6.4-8.2)
[2017-03-09] VITALS (24 sets, daily range): BP systolic 107–136; BP diastolic 41–83
[2017-03-09 07:20] LABS: CALCIUM 8.6 mg/dL (8.5-10.1); CREATININE 0.7 mg/dL (0.7-1.3); POTASSIUM 4.4 mmol/L (3.5-5.1)
[2017-03-09 07:22] LABS: ABSOLUTE NEUTROPHILS 6.7 thou/uL (1.4-8.2); BASOPHILS 0.8 % (0.0-2.0); EOSINOPHILS 2.1 % (0.0-3.0); HEMATOCRIT 22.7 % (42.0-52.0); HEMOGLOBIN 7.7 gm/dL (14.0-18.0); LYMPHOCYTES 15.5 % (24.0-44.0); MCH 31.4 pg (26.0-34.0); MCHC 34.1 g/dL (28.0-37.0); MCV 92.4 fL (80.0-100.0); MONOCYTES 10.5 % (1.0-8.0); PLATELET COUNT 376 thou/uL (150-400); POLYS 71.1 % (36.0-66.0); RBC 2.46 mil/uL (4.50-6.00); RDW 16.5 % (10.5-14.5); WBC 9.4 thou/uL (4.0-11.0)
[2017-03-09 07:29] LABS: MANUAL DIFF NO
[2017-03-10] VITALS (24 sets, daily range): BP systolic 97–149; BP diastolic 47–78
[2017-03-10 12:17] LABS: ABG SAMPLE TYPE ARTERIAL; BE(vivo) 5.7 mmol/L (-2 to +3); HCO3 29.8 mmol/L (22.0-26.0); LACTATE 0.89 mmol/L (0.5-2.0); O2(CT) 11.2 mL/dL (15.0-23.0); O2Hb 97.7 % (92.0-98.0); PCO2 41.8 mmHg (35.0-45.0); PO2 138.9 mmHg (80.0-100.0); pH 7.471 (7.360-7.450); sO2 98.9 % (92.0-98.0); tCO2 31.1 mmol/L (24.0-30.0)
[2017-03-10 12:19] LABS: ABG COMMENT CPAP TRIAL; Pressure Support 8 cm H20; STICK SITE R.RADIAL; TIDAL VOLUME 520 ml
[2017-03-11] VITALS (14 sets, daily range): BP systolic 88–135; BP diastolic 45–69
[2017-03-11 03:37] LABS: ABSOLUTE NEUTROPHILS 7.6 thou/uL (1.4-8.2); BASOPHILS 0.6 % (0.0-2.0); EOSINOPHILS 0.9 % (0.0-3.0); HEMATOCRIT 20.8 % (42.0-52.0); HEMOGLOBIN 7.2 gm/dL (14.0-18.0); LYMPHOCYTES 14.8 % (24.0-44.0); MCH 31.9 pg (26.0-34.0); MCHC 34.8 g/dL (28.0-37.0); MCV 91.9 fL (80.0-100.0); MONOCYTES 11.2 % (1.0-8.0); PLATELET COUNT 396 thou/uL (150-400); POLYS 72.5 % (36.0-66.0); RBC 2.27 mil/uL (4.50-6.00); RDW 16.8 % (10.5-14.5); WBC 10.5 thou/uL (4.0-11.0)
[2017-03-11 03:42] LABS: MANUAL DIFF NO
[2017-03-11 03:55] LABS: CREATININE 0.6 mg/dL (0.7-1.3); POTASSIUM 3.9 mmol/L (3.5-5.1)
[2017-03-12 00:20] VITALS: BP 129/65
[2017-03-12 03:40] VITALS: BP 11/53
[2017-03-12 08:00] VITALS: BP 136/74
[2017-03-12 12:00] VITALS: BP 98/51
[2017-03-12] MEDS ORDERED: HUMALOG100 UNIT/1 SUBQ (15:48)
[2017-03-12] MEDS ORDERED: CATHFLO ACT2 MG/VIA1 IV PUSH (15:48)
[2017-03-12] MEDS ORDERED: ALBUTEROL2.5 MG/0.5 INH (15:48)
[2017-03-12] MEDS ORDERED: MERREM 500500 MG/12 IV (15:48)
[2017-03-12] MEDS ORDERED: TYLENOL325 MG PO (15:48)
[2017-03-12] MEDS ORDERED: PACERONE 200 M200 M1 PO (15:48)
[2017-03-12] MEDS ORDERED: PERIDEX 0.12%473 M1 MUCOUS MEM (15:48)
[2017-03-12] MEDS ORDERED: ELIQUIS5 MG PO (15:48)
[2017-03-12 16:00] VITALS: BP 123/57
== END 2017-03-12 17:18 | DRG 4 ==
LOC: ER 19:05 → EROBS 19:28 → ICU 19:28 → 2N 03-11 16:54
PROVIDERS: Emergency Medicine; Hospitalist; Internal Medicine Cardiovascular Disease; Internal Medicine Endocrinology, Diabetes & Metabolism; Internal Medicine Pulmonary Disease; Nurse Practitioner Acute Care; Psychiatry & Neurology Neurology; Specialist
PROC: 5A1955Z Respiratory Ventilation, Greater than 96 Consecutive Hours (ICD-10-PCS; principal; 2017-02-24)
PROC: 02HV33Z Insertion of Infusion Device into Superior Vena Cava, Percutaneous Approach (ICD-10-PCS; principal; 2017-02-24)
PROC: 0B110F4 Bypass Trachea to Cutaneous with Tracheostomy Device, Open Approach (ICD-10-PCS; 2017-03-09)
DX: A41.9 Sepsis, unspecified organism (principal); J69.0 Pneumonitis due to inhalation of food and vomit; R65.21 Severe sepsis with septic shock; E43 Unspecified severe protein-calorie malnutrition; J15.0 Pneumonia due to Klebsiella pneumoniae; J96.21 Acute and chronic respiratory failure with hypoxia; I21.4 Non-ST elevation (NSTEMI) myocardial infarction; G92 Toxic encephalopathy; N17.9 Acute kidney failure, unspecified; N39.0 Urinary tract infection, site not specified; E87.1 Hypo-osmolality and hyponatremia; I48.92 Unspecified atrial flutter; K56.7 Ileus, unspecified; E11.9 Type 2 diabetes mellitus without complications; I25.10 Atherosclerotic heart disease of native coronary artery without angina pectoris; E78.00 Pure hypercholesterolemia, unspecified; E83.42 Hypomagnesemia; B37.9 Candidiasis, unspecified; I48.91 Unspecified atrial fibrillation; F03.90 Unspecified dementia, unspecified severity, without behavioral disturbance, psychotic disturbance, mood disturbance, and anxiety; D64.9 Anemia, unspecified; F32.9 Major depressive disorder, single episode, unspecified; J02.9 Acute pharyngitis, unspecified; R74.0 Nonspecific elevation of levels of transaminase and lactic acid dehydrogenase [LDH]; T14.91 Suicide attempt; J44.9 Chronic obstructive pulmonary disease, unspecified; Z89.411 Acquired absence of right great toe; Z87.81 Personal history of (healed) traumatic fracture; Z95.5 Presence of coronary angioplasty implant and graft; Z88.6 Allergy status to analgesic agent; Z88.1 Allergy status to other antibiotic agents; Z88.2 Allergy status to sulfonamides; Z79.899 Other long term (current) drug therapy; Z95.1 Presence of aortocoronary bypass graft; Z68.28 Body mass index [BMI] 28.0-28.9, adult; Z93.1 Gastrostomy status; Z86.73 Personal history of transient ischemic attack (TIA), and cerebral infarction without residual deficits; Z79.01 Long term (current) use of anticoagulants; Z79.82 Long term (current) use of aspirin; I11.0 Hypertensive heart disease with heart failure; I50.9 Heart failure, unspecified
CPT/HCPCS: 10078; 10081; 27000; 50101; 50386; 50398; 50517; 56525; 56526; 56639; 57006; 62110; 62900